=== PATIENT | male | born 1985 | race Caucasian/White ===

== ENCOUNTER 2020-04-08 01:33 | Emergency (ER) | payer OTHER, SELFPAY ==
--- NOTE | ~2020-04-08 | CT_ITS ---
EXAMINATION: CT BRAIN W/O DATE: 04/08/2020 02:32 INDICATION: Headache and dizziness TECHNIQUE: Computed tomography (CT) of the head was performed without intravenous contrast. The dose- length product was 605.33 mGy-cm. The mA was adjusted according to patient size. Iterative reconstruc tion technique was employed. COMPARISON: CT dated 04/10/2019 FINDINGS: Normal brain parenchymal volume for age. Normal whitehead-white differentiation. No acute intrac ranial hemorrhage, infarction, mass or mass effect. No ventriculomegaly or midline shift. Midline sagittal images demonstrate a normal corpus callosum, c raniovertebral junction and sella turcica. Basilar cisterns are patent. Paranasal sinuses and mastoids are pneumatized. No depressed skull fractures. IMPRESSION: 1. No acute intracranial abnormality. Reviewed, dictated and finalized at location A.
--- NOTE | ~2020-04-08 | XR_ITS ---
EXAMINATION: XR chest 2V 04/08/2020 02:33 INDICATION: Dizziness. PROCEDURE: 2 view chest COMPARISON: 04/10/2019 FINDINGS: The lungs are clear. The cardiomediastinal silhouette is within normal limits. There are no pleural effusions. There is no pneumothorax suspected. IMPRESSION: 1: NO ACUTE CARDIOPULMONARY DISEASE. Reviewed, dictated and finalized at location A.
[2020-04-08 01:35] VITALS: BP 120/78; PULSE 60; RESP 16; TEMP 37; O2SAT 98
--- NOTE | 2020-04-08 01:36 | ECG_ITS ---
Measurements Intervals [place] Rate: 55 P: 60 WY: 150 QRS: 73 QRSD: 91 T: 66 QT: 420 QTc: 405 Interpretive Statements SINUS BRADYCARDIA BORDERLINE ECG Electronically Signed On 04-08-2020 10:55:42 CDT by Brody Yen D.O.
[2020-04-08] MEDS: SODIUM CHLORIDE 0.9% IV 1,000 ML 999 ML IV CONT (01:45)
--- NOTE | 2020-04-08 01:47 | ED.ABDPAIN ---
HPI - Abdominal Pain General Chief Complaint: Chest Pain Stated Complaint: chest pain Time Seen by Provider: 04/08/20 01:33 Source: patient Mode of arrival: ambulatory Limitations: no limitations History of Present Illness HPI narrative: 35-year-old man who was previously well comes into the emergency department this evening complaining of headache, nausea, vomiting, dizziness and epigastric pain that started approximately 3 hours ago. Patient states that he felt tired so he fell asleep and when he woke up he had the symptoms. he also complains of photophobia and nasal congestion. He last ate at approximately 3:00 p.m.. He denies any sore throat, cough, shortness of breath, sick contacts, dysuria, hematuria, rash. patient denies history of migraines however he has been seen in this ER for migrainous symptoms on 12/29, 12/30, and 04/01. MD elicited complaint: abdominal pain Onset (ago): hour(s) (3-4) Pain Consistency: constant Location: epigastric Severity: moderate Quality: sharp Radiation: none Migration to: no migration Exacerbating factors: nothing Relieving factors: nothing Associated symptoms: nausea and vomiting Related Data Allergies Allergy/AdvReac Type Severity Reaction Status Date / Time No Known Allergies Allergy Verified 04/08/20 02:05 Review of Systems Constitutional: Constitutional: Denies chills, Reports fatigue, Denies fever(s) and Denies weakness Eyes: Eyes: Denies change in vision and Reports photophobia ENT: Denies dysphagia, Denies epistaxis, Reports nasal congestion and Denies sore throat Cardiovascular: Cardiovascular: Reports chest pain and Reports radiating jaw, neck or arm pain Respiratory: Respiratory: Denies cough, Denies dyspnea and Denies wheezing Gastrointestinal: Gastrointestinal: Reports as per HPI, Reports abdominal pain, Denies diarrhea, Reports nausea and Reports vomiting Genitourinary: Genitourinary: Denies dysuria and Denies urinary frequency Musculoskeletal: Musculoskeletal: Denies back pain, Denies arthralgias and Denies joint swelling Integumentary/Breasts: Skin/Breast: Denies pruritus, Denies erythema and Denies rash Neurologic: Denies vertigo, Denies dizziness, Denies syncope, Denies focal weakness and Denies numbness Hematologic/Lymphatic: Hematologic/Lymphatic: Denies easy bleeding and Denies easy bruising Allergic/Immunologic: Allergic/Immunologic: Denies lip swelling and Denies tongue swelling [facility] Social History Social History Smoking status: Current every day smoker Alcohol intake: current Substance use: never Living arrangements: with family Gender identity (if verbalized by the patient): Male Exam Const: General: healthy appearing and alert Orientation/consciousness: patient oriented x3 Limitations: no limitations Other: mild acute distress HENMT: Ears: external ears normal, TM's normal bilaterally and EAC's normal General nose exam: Normal nares present Face and sinus: normal facial exam Mouth: Yes moist mucous membranes Throat: posterior oropharynx normal Eyes: Conjunctivae: conjunctivae normal Pupils: Equal, round and reactive pupils present EOM: EOMs intact bilaterally Neck: Neck: normal visual inspection and no lymphadenopathy Resp: Effort & Inspection: normal respiratory effort and not labored Auscultation: clear to auscultation bilaterally, no rales, no rhonchi and no wheezes Cardio: Rate: regular rate Rhythm: regular rhythm Heart sounds: no murmurs GI: Inspection: non-distended GI Palp: Yes Soft to palpation Other: Mild diffuse tenderness of the epigastrium. without guarding, rebound. Skin: General skin exam: normal color, no jaundice and no pallor Rashes: no rashes Neuro: General: patient oriented x3, moves all extremities, no focal motor deficits and CN's II-XI intact bilaterally Speech: normal speech Gait exam (Neuro): Normal gait present Extrem: General: andressa
[2020-04-08 01:56] VITALS: BP 123/74; PULSE 60
[2020-04-08 01:57] VITALS: BP 122/78; PULSE 61
[2020-04-08 02:18] LABS: Basophils Absolute Auto 0.01 K/mm3 (0.00-0.10); Basophils Percent Auto 0.1 % (0.0-1.0); Eosinophils Percent Auto 1.2 % (1.0-6.0); Hemoglobin 14.3 g/dL (14.0-18.0); Immature Granulocyte Absolute 0.09 K/mm3 (0.00-0.00); Immature Granulocyte Percent A 1.1 % (0.0-0.0); Lymphocytes Absolute Auto 1.21 K/mm3 (1.10-4.50); Lymphocytes Percent Auto 15.1 % (18.0-42.0); Mean Corpuscular HGB Conc 33.3 g/dL (32.0-36.0); Mean Corpuscular Hemoglobin 30.9 pg (27.0-31.0); Mean Corpuscular Volume 92.9 fL (78.0-102.0); Mean Platelet Volume 10.2 fl (8.7-11.0); Monocytes Absolute Auto 0.54 K/mm3 (0.10-0.90); Monocytes Percent Auto 6.7 % (2.0-11.0); Neutrophils Absolute Auto 6.1 K/mm3 (1.7-7.2); Neutrophils Percent Auto 75.8 % (50.0-70.0); Platelet Count Result 199 K/mm3 (150-420); Red Blood Count 4.63 M/mm3 (4.70-6.10); Red Cell Distribution Width 13.1 % (11.6-14.4)
[2020-04-08 02:20] LABS: Bilirubin Urine Negative (Negative); Blood Urine Negative (Negative); Color Urine Yellow (Yellow); Glucose Urine UA Negative (Negative); Ketones Urine Negative (Negative); Leukocyte Esterase Ur Negative LEU/UL (Negative); Nitrate Urine Negative (Negative); Protein Urine Negative (Negative); Specific Grav Ur 1.015 (1.010-1.020); Urobilinogen Urine 0.2 mg/dL (0.2-1.0); pH Urine 8.5 (5.0-8.0)
[2020-04-08 02:21] LABS: Add Urine Microscopic? NO; Appearance Urine Clear (Clear)
[2020-04-08 02:28] LABS: INR 1.1; Partial Thromboplastin Time 31.4 SEC (22.3-31.6); Prothrombin Time 11.6 Seconds (9.64-11.0)
[2020-04-08 02:36] LABS: Alanine Aminotransferase 17 U/L (16-63); Albumin Level 4.2 g/dL (3.4-5.0); Alkaline Phosphatase 60 U/L (46-116); Anion Gap 9 mmol/L (8-16); Aspartate Amino Transferase 11 U/L (15-37); Bilirubin,Total 0.4 mg/dL (0.00-1.00); Blood Urea Nitrogen 7 mg/dL (7-18); CRP < 0.5 mg/dL (0.0-0.9); Calcium 8.7 mg/dL (8.5-10.1); Carbon Dioxide 26 mmol/L (21-32); Chloride 103 mmol/L (98-108); Creatine Kinase 111 U/L (39-308); Estimated CRCL calculation 84 ml/min; Estimated Glomerular Filt Rate > 60; Glucose 111 mg/dL (70-99); Lipase 50 U/L (73-393); Osmolality Calculated 285 mOsm/kg (285-295); Potassium 3.5 mmol/L (3.5-5.1); Sodium 138 mmol/L (136-145); Total Protein 7.1 g/dL (6.4-8.2)
[2020-04-08 02:39] LABS: Troponin I < 0.02 ng/mL (0.00-0.056)
[2020-04-08 02:42] LABS: Lactic Acid Reflex 0.6 mmol/L (0.4-2.0)
[2020-04-08] MEDS: KETOROLAC 30 MG/ML VIAL (*BKC) IV PUSH (02:51)
[2020-04-08] MEDS: ONDANSETRON INJ 4 MG/2 ML VIAL IV PUSH (02:52)
[2020-04-08 02:59] VITALS: BP 120/66; PULSE 62; RESP 16; TEMP 36.4; O2SAT 98
[2020-04-10 12:00] LABS: SARS-CoV-2 RNA PCR Negative
--- NOTE | 2020-04-21 22:42 | PC.NURSE ---
late entry 04/08/2020 IV complete 0145
== END 2020-04-08 03:01 | disposition home or self-care (01) ==
PROVIDERS: Emergency Provider Emergency Medicine; PCP Family Medicine
DX: B34.9 Viral infection, unspecified (principal); G44.89 Other headache syndrome
CPT/HCPCS: 36415; 70450; 71046; 80053; 81003; 82550; 83605; 83690; 84484; 85025; 85610; 85730; 86140; 87040; 87635; 93005; 96374; 96375; 99284; C9803; J1885; J2405; J7030; U0003

== ENCOUNTER 2020-05-03 16:42 | Outpatient (CLI) | payer OTHER, SELFPAY ==
--- NOTE | ~2020-05-03 | XR_ITS ---
EXAMINATION: XR_CERV2-3V_CR EXAM DATE: 05/03/2020 17:10 INDICATION: Generalized neck, upper back pain into shoulders. TECHNIQUE: Cervical spine frontal, lateral, lateral swimmers, and open-mouth odontoid projections. C omparison is made to prior examination from 04/29/2018. FINDINGS: There is no evidence of acute cervical fracture. The odontoid process is intact. Pre-dens space is normal. Prevertebral soft tissue is normal. There are no soft tissue abnormalities identi fied. The vertebral bodies are aligned. Vertebral body and disc heights are well-maintained. No more than mild cervical arthropathy. IMPRESSION: Mild cervical arthropathy. Reviewed, dictated and finalized at location A. IMPRESSION: Mild cervical arthropathy.
--- NOTE | ~2020-05-03 | XR_ITS ---
EXAMINATION: XR thoracic spine 3V EXAM DATE: 05/03/2020 17:10 INDICATION: Generalized neck/upper back pain into shoulders. No known injury. TECHNIQUE: Frontal and lateral projections of the thoracic spine as well as lateral swimmers projecti on of the upper thoracic spine for interpretation. Comparison is made to prior examination from 016. FINDINGS: Paraspinal soft tissue is unremarkable. There is minimal mid thoracic dextro scoliosis and lower thoracic levoscoliosis. There is mild disc disease from T8 through T12. Vertebral body heights are maintained. The vertebral bodies are aligned in the AP dimension. There are no bony erosions rose ntified. IMPRESSION: 1. Mild lower thoracic spondylosis. 2. Minimal scoliosis. Reviewed, dictated and finalized at location A.
== END 2020-05-03 16:43 | disposition home or self-care (01) ==
LOC: CHSIMG 16:44
PROVIDERS: PCP Family Medicine; Visit Provider Family Medicine
DX: M54.2 Cervicalgia (principal); M54.6 Pain in thoracic spine
CPT/HCPCS: 72040; 72072

== ENCOUNTER 2020-05-21 11:35 | Emergency (ER) | payer OTHER, SELFPAY ==
[2020-05-21 11:48] VITALS: BP 111/88; PULSE 79; RESP 14; TEMP 36.6; O2SAT 98
--- NOTE | 2020-05-21 12:03 | ED.URI ---
HPI - URI/Sore Throat General Chief Complaint: Upper Respiratory Infection Stated Complaint: 35YO male w/ 1 day h.o Sore throat associated w/ swollen lymph nodes, denies fever, chills. Related Data Home Medications Medication Instructions Recorded Confirmed No Home Medications 05/21/20 05/21/20 Allergies Allergy/AdvReac Type Severity Reaction Status Date / Time No Known Allergies Allergy Verified 04/08/20 02:05 Review of Systems Constitutional: Constitutional: Reports no additional constitutional complaints, Denies chills, Denies fatigue, Denies fever(s) and Denies weakness Eyes: Eyes: Reports no additional eye complaints ENT: Reports as per HPI and Reports sore throat Cardiovascular: Cardiovascular: Reports no additional cardiovascular complaints Respiratory: Respiratory: Reports no additional respiratory complaints Gastrointestinal: Gastrointestinal: Reports no additional gastrointestinal complaints Genitourinary: Genitourinary: Reports no additional male genitourinary complaints Musculoskeletal: Musculoskeletal: Reports no additional musculoskeletal complaints Integumentary/Breasts: Skin/Breast: Reports system reviewed and no additional complaints, except as docu Neurologic: Reports system reviewed and no additional complaints, except as documented Psychiatric: Psychiatric: Reports no additional psychiatric complaints Endocrine: Endocrine: Reports no additional endocrine complaints Hematologic/Lymphatic: Hematologic/Lymphatic: Reports no additional hematologic/lymphatic complaints Allergic/Immunologic: Allergic/Immunologic: Reports no additional allergic/immunologic complaints [facility] Social History Social History Smoking status: Current every day smoker Alcohol intake: current Substance use: never Gender identity (if verbalized by the patient): Male Exam Const: General: healthy appearing, no acute distress and alert Nutritional Appearance: thin Orientation/consciousness: patient oriented x3 Limitations: altered mental status HENMT: Head: normal to inspection General nose exam: Normal nares present Face and sinus: normal facial exam and sinuses nontender Mouth: Yes Normal oral and palatal mucosa present Other: POsterior pharyngeal erythema Eyes: Conjunctivae: conjunctivae normal Neck: Neck: lymphadenopathy Chest: Chest palpation & inspection: normal inspection of the chest Resp: Effort & Inspection: normal respiratory effort Auscultation: clear to auscultation bilaterally Cardio: Rate: regular rate Rhythm: regular rhythm GI: Inspection: non-distended GI Palp: Yes Soft to palpation, No Tenderness to palpation present (GI) and No Guarding due to palpation present (GI) Skin: General skin exam: normal color Neuro: General: patient oriented x3 and moves all extremities Extrem: General: normal to inspection Psych: Appearance: grossly normal Mental Status: mental status grossly normal Thought content: Yes Normal thought content present Course Course Emergency Course: Patient admits to feeling better after I discussed results of workup with her. I discussed Heart score and admission to R/O CT. She agrees with admission for observation. Vital Signs Vital signs: Vital Signs Temperature 97.9 F 05/21/20 11:48 Pulse Rate 79 05/21/20 11:48 Respiratory Rate 14 05/21/20 11:48 Blood Pressure 111/88 05/21/20 11:48 Pulse Oximetry 98 05/21/20 11:48 Temperature 97.9 F 05/21/20 11:48 Pulse Rate 79 05/21/20 11:48 Respiratory Rate 14 05/21/20 11:48 Blood Pressure 111/88 05/21/20 11:48 Pulse Oximetry 98 05/21/20 11:48 MDM - URI/Sore Throat Differential Diagnosis Differential diagnosis: Likely other (ACS, PE, GERD) Medical Records Attestation: I reviewed the patient's medical records. Lab Data Attestation: I reviewed the patient's lab results. ECG Data EKG #1: Attestation: I
[2020-05-21 12:56] LABS: Influenza Control Valid (Valid)
[2020-05-21 13:26] VITALS: RESP 14; O2SAT 100
== END 2020-05-21 13:27 | disposition home or self-care (01) ==
PROVIDERS: Emergency Provider Family Medicine; PCP Family Medicine
DX: J02.9 Acute pharyngitis, unspecified (principal)
CPT/HCPCS: 87081; 87804; 87880; 99282; 99283

== ENCOUNTER 2020-06-01 11:32 | Outpatient (CLI) | payer OTHER, SELFPAY ==
[2020-06-02 06:44] LABS: SARS-CoV-2 RNA PCR Negative
== END 2020-06-01 11:33 | disposition home or self-care (01) ==
LOC: CHSLAB 11:36
PROVIDERS: PCP Family Medicine; Visit Provider Family Medicine
DX: Z20.828 Contact with and (suspected) exposure to other viral communicable diseases (principal)
CPT/HCPCS: 87635; C9803; U0003

== ENCOUNTER 2020-09-11 08:52 | Outpatient (CLI) | payer OTHER, SELFPAY ==
[2020-09-11 09:03] LABS: Basophils Absolute Auto 0.02 K/mm3 (0.00-0.10); Basophils Percent Auto 0.3 % (0.0-1.0); Eosinophils Absolute Auto 0.26 K/mm3 (0.02-0.50); Eosinophils Percent Auto 3.4 % (1.0-6.0); Hematocrit 45.1 % (40.0-54.0); Hemoglobin 14.8 g/dL (14.0-18.0); Immature Granulocyte Absolute 0.01 K/mm3 (0.00-0.00); Immature Granulocyte Percent A 0.1 % (0.0-0.0); Lymphocytes Absolute Auto 2.89 K/mm3 (1.10-4.50); Lymphocytes Percent Auto 38.1 % (18.0-42.0); Mean Corpuscular HGB Conc 32.8 g/dL (32.0-36.0); Mean Corpuscular Hemoglobin 30.7 pg (27.0-31.0); Mean Corpuscular Volume 93.6 fL (78.0-102.0); Mean Platelet Volume 9.9 fl (8.7-11.0); Monocytes Absolute Auto 0.71 K/mm3 (0.10-0.90); Monocytes Percent Auto 9.4 % (2.0-11.0); Neutrophils Absolute Auto 3.7 K/mm3 (1.7-7.2); Neutrophils Percent Auto 48.7 % (50.0-70.0); Platelet Count Result 223 K/mm3 (150-420); Red Blood Count 4.82 M/mm3 (4.70-6.10); White Blood Count 7.6 K/mm3 (4.8-10.8)
[2020-09-11 09:04] LABS: Add Urine Microscopic? NO; Appearance Urine Clear (Clear); Bilirubin Urine Negative (Negative); Blood Urine Negative (Negative); Color Urine Yellow (Yellow); Glucose Urine UA Negative (Negative); Ketones Urine Negative (Negative); Leukocyte Esterase Ur Negative (Negative); Nitrate Urine Negative (Negative); Protein Urine Negative (Negative); Specific Grav Ur >= 1.030 (1.010-1.020); Urobilinogen Urine 0.2 mg/dL (0.2-1.0); pH Urine 6.5 (5.0-8.0)
[2020-09-11 10:02] LABS: Alanine Aminotransferase 27 U/L (16-63); Albumin Level 4.3 g/dL (3.4-5.0); Alkaline Phosphatase 61 U/L (46-116); Anion Gap 9 mmol/L (8-16); Aspartate Amino Transferase 15 U/L (15-37); Bilirubin,Total 0.3 mg/dL (0.00-1.00); Blood Urea Nitrogen 13 mg/dL (7-18); Carbon Dioxide 29 mmol/L (21-32); Chloride 103 mmol/L (98-108); Cholesterol 149 mg/dL (0-200); Estimated Glomerular Filt Rate > 60; Glucose 87 mg/dL (70-99); HDL Direct 41 mg/dL (40-60); LDL Cholesterol Calculated 100 mg/dL (<130); Osmolality Calculated 291 mOsm/kg (285-295); Potassium 4.2 mmol/L (3.5-5.1); Sodium 141 mmol/L (136-145); Triglycerides 40 mg/dL (0-150)
== END 2020-09-11 08:53 | disposition home or self-care (01) ==
PROVIDERS: PCP Family Medicine; Visit Provider Family Medicine
DX: I78.1 Nevus, non-neoplastic (principal); Z13.220 Encounter for screening for lipoid disorders
CPT/HCPCS: 36415; 80053; 80061; 81003; 85025

== ENCOUNTER 2020-11-15 03:53 | Emergency (ER) | payer OTHER, SELFPAY ==
[2020-11-15 04:18] VITALS: BP 118/77; PULSE 57; RESP 20; TEMP 36.8; O2SAT 99
[2020-11-15] MEDS: METOCLOPRAMIDE HCL INJ 10 MG/2 ML VIAL IM (04:32)
[2020-11-15] MEDS: KETOROLAC (*BKC) 60 MG/2 ML VIAL IM (04:32)
[2020-11-15] MEDS: DIVALPROEX SODIUM ER 250 MG TAB.24H 750 MG PO (04:33)
[2020-11-15 04:52] VITALS: BP 120/71; PULSE 65; RESP 20; O2SAT 99
--- NOTE | 2020-11-15 04:53 | ED.HA ---
HPI - Headache General Chief Complaint: Headache Stated Complaint: Migraine Time Seen by Provider: 11/15/20 04:25 Source: patient and family Mode of arrival: ambulatory Limitations: no limitations History of Present Illness HPI Narrative: Patient comes in with migraine. He says severe sharp stabbing pain started about 5 hours ago and is located behind his left eye. This is associated with nausea. He states he has headaches like this about once a week, but this is more severe than his typical. He has increased pain with light exposure, less with dark, and increased pain with movement, less with rest. MD elicited complaint: headache and migraine Pertinent past history: migraines Onset (ago): hour(s) Onset description: gradually Location: left Severity: severe Quality & Timing: throbbing and similar to previous headaches Exacerbating factors: exertion and light Relieving factors: rest and dark room Context: occurred at rest Associated symptoms: nausea Related Data Allergies Allergy/AdvReac Type Severity Reaction Status Date / Time No Known Allergies Allergy Verified 06/01/20 13:29 Review of Systems Constitutional: Constitutional: Reports no additional constitutional complaints Eyes: Eyes: Reports no additional eye complaints ENT: Reports system reviewed and no additional complaints, except as documented Cardiovascular: Cardiovascular: Reports no additional cardiovascular complaints Respiratory: Respiratory: Reports no additional respiratory complaints Gastrointestinal: Gastrointestinal: Reports no additional gastrointestinal complaints Genitourinary: Genitourinary: Reports no additional male genitourinary complaints Musculoskeletal: Musculoskeletal: Reports no additional musculoskeletal complaints Integumentary/Breasts: Skin/Breast: Reports system reviewed and no additional complaints, except as docu Neurologic: Reports system reviewed and no additional complaints, except as documented Psychiatric: Psychiatric: Reports no additional psychiatric complaints Endocrine: Endocrine: Reports no additional endocrine complaints Hematologic/Lymphatic: Hematologic/Lymphatic: Reports no additional hematologic/lymphatic complaints Allergic/Immunologic: Allergic/Immunologic: Reports no additional allergic/immunologic complaints [facility] Past Medical History Medical History (Updated 11/15/20 @ 05:46 by Jacky Aceves MD) Acute viral pharyngitis Ganglion Ganglion and cyst of synovium, tendon and bursa Social History Social History Smoking status: Current every day smoker Alcohol intake: current Substance use: never Gender identity (if verbalized by the patient): Male Exam Const: General: no acute distress Orientation/consciousness: patient oriented x3 HENMT: Head: normal to inspection General nose exam: Normal external nose present Mouth: Yes Abnormal oral and palatal mucosa present Eyes: Conjunctivae: conjunctivae normal Neck: Neck: normal visual inspection Chest: Chest palpation & inspection: normal inspection of the chest Resp: Effort & Inspection: normal respiratory effort Auscultation: clear to auscultation bilaterally Cardio: Rate: regular rate Rhythm: regular rhythm GI: GI Palp: Yes Soft to palpation (nontender) Skin: General skin exam: normal color Neuro: General: patient oriented x3 and moves all extremities Extrem: General: normal to inspection Psych: Appearance: grossly normal Mental Status: mental status grossly normal Thought content: Yes Normal thought content present Course Course Emergency Course: he was evaluated and given [id number] depakote 750mg, and reglan 10mg IM after a few minutes he was feeling better Vital Signs Vital signs: Vital Signs Temperature 36.8 C 11/15/20 04:18 Pulse Rate 57 L 11/15/20 04:18 Respiratory Rate 20 11/15/20 04:18 Blood Pressure 118/77 11/15/20 04:18 Pulse Oximetr
== END 2020-11-15 04:58 | disposition home or self-care (01) ==
PROVIDERS: Emergency Provider Emergency Medicine; PCP Family Medicine
DX: G43.919 Migraine, unspecified, intractable, without status migrainosus (principal)
CPT/HCPCS: 96372; 99283; 99284; A9270; J1885; J2765

== ENCOUNTER 2020-12-16 02:26 | Emergency (ER) | payer OTHER, SELFPAY ==
[2020-12-16 02:30] VITALS: BP 130/86; PULSE 80; RESP 16; TEMP 36.3; O2SAT 95
--- NOTE | 2020-12-16 02:57 | ED.HA ---
HPI - Headache General Chief Complaint: Headache Stated Complaint: PAIN Time Seen by Provider: 12/16/20 02:57 Source: patient Mode of arrival: ambulatory Limitations: no limitations History of Present Illness HPI Narrative: 35-year-old man with history of headaches comes in today complaining of a headache that started earlier today. He was working on a trailer axle with his friend when the headache started. He has had some nausea and photophobia. The pain is frontal and occipital and is similar to headaches that he has had in the past. He states he has not seen his primary care doctor and does not have a specific treatment for his headaches but took ibuprofen today. The ibuprofen did not help. MD elicited complaint: headache Onset (ago): hour(s) Onset description: suddenly Location: frontal and occipital Severity: moderate Quality & Timing: throbbing Exacerbating factors: none Relieving factors: nothing Associated symptoms: nausea and photophobia Treatments prior to arrival: ibuprofen Related Data Allergies Allergy/AdvReac Type Severity Reaction Status Date / Time No Known Allergies Allergy Verified 06/01/20 13:29 Review of Systems Review of Systems: All systems reviewed & are unremarkable except as noted in HPI and below Constitutional: Constitutional: Denies chills and Denies fever(s) Eyes: Eyes: Denies change in vision and Reports photophobia ENT: Denies nasal congestion and Denies sore throat Cardiovascular: Cardiovascular: Denies chest pain and Denies radiating jaw, neck or arm pain Respiratory: Respiratory: Denies cough and Denies dyspnea Gastrointestinal: Gastrointestinal: Denies abdominal pain, Reports nausea and Denies vomiting Musculoskeletal: Musculoskeletal: Denies arthralgias and Denies joint swelling Integumentary/Breasts: Skin/Breast: Denies pruritus, Denies erythema and Denies rash Neurologic: Denies vertigo, Denies dizziness, Denies syncope, Reports headache(s) and Denies focal weakness PMFSH Past Medical History Medical History Acute viral pharyngitis Ganglion Ganglion and cyst of synovium, tendon and bursa Social History Social History Smoking status: Current every day smoker Alcohol intake: current Substance use: never Gender identity (if verbalized by the patient): Male Exam Const: General: healthy appearing and alert Orientation/consciousness: patient oriented x3 Limitations: no limitations Other: Mild acute distress. HENMT: Head: normal to inspection Ears: external ears normal, TM's normal bilaterally and EAC's normal General nose exam: Normal nares present Face and sinus: normal facial exam Mouth: Yes moist mucous membranes abnormal Throat: posterior oropharynx normal Eyes: Conjunctivae: conjunctivae normal Pupils: Equal, round and reactive pupils present EOM: EOMs intact bilaterally Resp: Effort & Inspection: normal respiratory effort and not labored Auscultation: clear to auscultation bilaterally, no rales, no rhonchi and no wheezes Cardio: Rate: regular rate Rhythm: regular rhythm Heart sounds: no murmurs Skin: General skin exam: normal color, no jaundice and no pallor Rashes: no rashes Neuro: General: patient oriented x3, moves all extremities, no focal motor deficits and CN's II-XI intact bilaterally Speech: normal speech Gait exam (Neuro): Normal gait present Other: Normal Romberg, finger-nose and tandem walk testing. Extrem: General: normal to inspection and no clubbing, cyanosis or edema Psych: Appearance: grossly normal and well kempt Mental Status: mental status grossly normal Affect: normal affect Attitude: cooperative Thought content: Yes Normal thought content present Course Course Emergency Course: Patient came to the desk and states that he wants to leave. After reviewing his chart and discussed findings and treat
--- NOTE | 2020-12-16 04:33 | PC.NURSE ---
0230: 2 ambulance arrived with seizures and another with cardiac event. Patient explained wait. 0310: MD with patient, patient agitated over wait. 0340: Patient at desk asking to leave, feeling better 0400: D/C
[2020-12-16 04:35] VITALS: BP 130/70; PULSE 90; RESP 18; TEMP 36.3; O2SAT 96
== END 2020-12-16 04:00 | disposition home or self-care (01) ==
PROVIDERS: Emergency Provider Emergency Medicine; PCP Family Medicine
DX: R51.9 Headache, unspecified (principal)
CPT/HCPCS: 99283

== ENCOUNTER 2021-03-07 13:20 | Outpatient (CLI) | payer OTHER, SELFPAY ==
[2021-03-07 15:14] LABS: SARS-CoV-2 RNA PCR Positive (Negative)
== END 2021-03-07 13:21 | disposition home or self-care (01) ==
PROVIDERS: PCP Family Medicine; Visit Provider Family Medicine
DX: U07.1 COVID-19 (principal); J00 Acute nasopharyngitis [common cold]
CPT/HCPCS: C9803; U0003; U0005

== ENCOUNTER 2021-03-31 11:50 | Emergency (ER) | payer OTHER, SELFPAY ==
--- NOTE | ~2021-03-31 | XR_ITS ---
EXAMINATION: XR hand LT 2V INDICATION: Left hand pain TECHNIQUE: Two views of the left hand are obtained. COMPARISON: None available FINDINGS: There is no fracture, dislocation, or subluxation. The bones and joint spaces are normal. N o radiopaque foreign body is identified. There appears to be a palmar soft tissue defect overlying th e metacarpals. IMPRESSION: 1. No acute osseous abnormality. Reviewed, dictated and finalized at location A.
--- NOTE | 2021-03-31 12:02 | ED.WOUNDLAC ---
HPI - Wound/Laceration General Stated Complaint: L hand lac, drill bit went into hand Source: patient Mode of arrival: ambulatory Limitations: no limitations History of Present Illness HPI narrative: this is a 36-year-old male that presents with injury to the palm of his left hand after he was working and a drill bit entered his left hand causing a punctate puncture wound currently has slight numbness to his left middle finger with puncture wound with no gaping area of in the wound, patient has good range of motion and movement in his left hand has a strong brisk radial pulse, is up-to-date with his tetanus shot. Onset (ago): hour(s) Extremity Location: Left: hand ( puncture wound palmar surface of his left hand) Place: home Patient tetanus UTD: Yes Context: accidental Associated symptoms: none Related Data Allergies Allergy/AdvReac Type Severity Reaction Status Date / Time No Known Allergies Allergy Verified 06/01/20 13:29 Review of Systems Review of Systems: All systems reviewed & are unremarkable except as noted in HPI and below PMFSH Past Medical History Medical History Acute viral pharyngitis Ganglion Ganglion and cyst of synovium, tendon and bursa Social History Social History Smoking status: Current every day smoker Alcohol intake: current Substance use: never Gender identity (if verbalized by the patient): Male Exam Const: General: no acute distress and alert Orientation/consciousness: patient oriented x3 HENMT: Head: normal to inspection Eyes: Conjunctivae: conjunctivae normal Pupils: Equal, round and reactive pupils present EOM: EOMs intact bilaterally Neck: Neck: normal visual inspection Chest: Chest palpation & inspection: normal inspection of the chest Cardio: Rate: regular rate Rhythm: regular rhythm Skin: Other: Puncture wound to the palmar surface of his left hand currently no bleeding no swelling Neuro: General: patient oriented x3, moves all extremities and no meningeal signs Psych: Mental Status: mental status grossly normal Affect: normal affect Attitude: cooperative Course Course Emergency Course: x-ray findings reviewed with patient, patient is up-to-date with his tetanus the area was cleaned, x-ray reviewed co wound is alone for dental abscess, advised to not take the amoxicillin will send Augmentin to his pharmacy. Critical Care Time Critical Care Time Critical Care Time: No Discharge Plan Discharge Clinical Impression: Puncture wound Patient Disposition: Home, Self-Care Condition: Stable Instructions: Antibiotic Form, Puncture Wound (ED) Additional Instructions: discontinue amoxicillin, will send Augmentin to your pharmacy take that as directed. Prescriptions: New amoxicillin-pot clavulanate [Augmentin] 875-125 mg tablet 1 tablet PO Q12H Qty: 20 RF: 0 No Action rizatriptan [Maxalt] 10 mg tablet 10 mg PO ONCE Qty: 18 RF: 0 ondansetron 4 mg tablet,disintegrating 4 mg PO Q6H PRN (Reason: nausea and vomiting) Qty: 10 RF: 0 Follow-up/Referrals: Lane Rosas MD [Primary Care Provider] - Time of Disposition: 12:22
[2021-03-31 12:08] VITALS: BP 121/82; PULSE 84; RESP 20; TEMP 36.9; O2SAT 98
[2021-03-31 12:29] VITALS: PULSE 82; RESP 20; O2SAT 100
== END 2021-03-31 12:34 | disposition home or self-care (01) ==
PROVIDERS: Emergency Provider Emergency Medicine; PCP Family Medicine
DX: S61.432A Puncture wound without foreign body of left hand, initial encounter (principal); W45.8XXA Other foreign body or object entering through skin, initial encounter
CPT/HCPCS: 73120; 99283

== ENCOUNTER 2021-08-01 07:35 | Outpatient (CLI) | payer OTHER, SELFPAY ==
[2021-08-01 08:11] LABS: Basophils Absolute Auto 0.02 K/mm3 (0.00-0.10); Basophils Percent Auto 0.3 % (0.0-1.0); Eosinophils Absolute Auto 0.17 K/mm3 (0.02-0.50); Eosinophils Percent Auto 2.6 % (1.0-6.0); Hemoglobin 15.6 g/dL (14.0-18.0); Immature Granulocyte Absolute 0.02 K/mm3 (0.00-0.00); Immature Granulocyte Percent A 0.3 % (0.0-0.0); Lymphocytes Absolute Auto 2.34 K/mm3 (1.10-4.50); Lymphocytes Percent Auto 35.3 % (18.0-42.0); Mean Corpuscular HGB Conc 32.5 g/dL (32.0-36.0); Mean Corpuscular Hemoglobin 30.1 pg (27.0-31.0); Mean Corpuscular Volume 92.7 fL (78.0-102.0); Mean Platelet Volume 9.7 fl (8.7-11.0); Monocytes Absolute Auto 0.61 K/mm3 (0.10-0.90); Monocytes Percent Auto 9.2 % (2.0-11.0); Neutrophils Absolute Auto 3.5 K/mm3 (1.7-7.2); Neutrophils Percent Auto 52.3 % (50.0-70.0); Platelet Count Result 236 K/mm3 (150-420); Red Blood Count 5.18 M/mm3 (4.70-6.10); Red Cell Distribution Width 12.7 % (11.6-14.4); White Blood Count 6.6 K/mm3 (4.8-10.8)
[2021-08-01 08:31] LABS: SARS-CoV-2 Ag Negative (Negative)
[2021-08-01 10:05] LABS: Alanine Aminotransferase 26 U/L (16-63); Albumin Level 4.3 g/dL (3.4-5.0); Alkaline Phosphatase 70 U/L (46-116); Anion Gap 10 mmol/L (8-16); Aspartate Amino Transferase 16 U/L (15-37); Bilirubin,Total 0.5 mg/dL (0.00-1.00); Blood Urea Nitrogen 11 mg/dL (7-18); Calcium 9.4 mg/dL (8.5-10.1); Carbon Dioxide 28 mmol/L (21-32); Chloride 102 mmol/L (98-108); Estimated Glomerular Filt Rate > 60; Glucose 102 mg/dL (70-99); Osmolality Calculated 289 mOsm/kg (285-295); Potassium 4.2 mmol/L (3.5-5.1); Sodium 140 mmol/L (136-145); Total Protein 7.1 g/dL (6.4-8.2)
[2021-08-02 21:12] LABS: SARS-CoV-2 RNA PCR Negative
== END 2021-08-01 07:36 | disposition home or self-care (01) ==
LOC: CHSLAB 07:38
PROVIDERS: PCP Family Medicine; Visit Provider Nurse Practitioner Family
DX: R59.9 Enlarged lymph nodes, unspecified (principal); Z20.822 Contact with and (suspected) exposure to COVID-19
CPT/HCPCS: 80053; 85025; 87081; 87426; 87880; C9803; U0003; U0005

== ENCOUNTER 2021-08-22 17:20 | Emergency (ER) | payer OTHER, SELFPAY ==
--- NOTE | ~2021-08-22 | CT_ITS ---
EXAMINATION: CT thoracic spine wo con DATE: 08/22/2021 18:30 INDICATION: Thoracic back pain. Low back pain. TECHNIQUE: Computed tomography (CT) of the thoracic spine was performed without intravenous contrast. Automated exposure control and iterative reconstruction technique were employed. The dose-length pro duct was 1115.56 mGy-cm. COMPARISON: None FINDINGS: There is 6 degrees dextrocurvature of upper thoracic spine. There is mild chronic anterior wedging of T8-L1 vertebral bodies. There is mildly decreased disc height at T8-T9 and T9-T10. There i s multilevel mild facet joint osteoarthritis. No neural foraminal stenosis or central canal stenosis. IMPRESSION: 1. Mild thoracic spondylosis. Reviewed, dictated and finalized at location A. D AGRONOMIST
--- NOTE | ~2021-08-22 | CT_ITS ---
EXAMINATION: CT lumbar spine wo con DATE: 08/22/2021 18:29 INDICATION: Low back pain. TECHNIQUE: Computed tomography (CT) of the lumbar spine was performed without intravenous contrast. A utomated exposure control and iterative reconstruction technique were employed. The dose-length produ ct was 1115.56 mGy-cm. COMPARISON: None FINDINGS: There is 3 degrees dextrocurvature of lumbar spine. There is mild chronic anterior wedging of T11-L1 vertebral bodies associated with Schmorl's nodes. Intervertebral disc heights are normal in lumbar spine. The following disc levels are specifically discussed: L1-L2: The disc does not extend beyond the endplate margin. There is mild bilateral facet joint osteo arthritis. There is no neural foraminal stenosis. There is no central canal stenosis. L2-L3: The disc does not extend beyond the endplate margin. There is mild bilateral facet joint osteo arthritis. There is no neural foraminal stenosis. There is no central canal stenosis. L3-L4: The disc does not extend beyond the endplate margin. There is mild bilateral facet joint osteo arthritis. There is no neural foraminal stenosis. There is no central canal stenosis. L4-L5: The disc is bulging. There is mild lateral facet joint osteoarthritis. There is mild bilateral neural foraminal stenosis. There is mild central canal stenosis. L5-S1: The disc does not extend beyond the endplate margin. There is mild bilateral facet joint osteo arthritis. There is no neural foraminal stenosis. There is no central canal stenosis. IMPRESSION: 1. Mild lumbar spondylosis. Reviewed, dictated and finalized at location A. IESEL ENGINEERING MANAGER IMPRESSION: 1. Mild lumbar spondylosis.
[2021-08-22 17:34] VITALS: BP 115/80; PULSE 63; RESP 14; TEMP 36.6; O2SAT 100
[2021-08-22 18:10] LABS: Add Urine Microscopic? NO; Appearance Urine Clear (Clear); Bilirubin Urine Negative (Negative); Blood Urine Negative (Negative); Color Urine Yellow (Yellow); Glucose Urine UA Negative (Negative); Ketones Urine Negative (Negative); Leukocyte Esterase Ur Negative (Negative); Nitrate Urine Negative (Negative); Protein Urine Negative (Negative); Specific Grav Ur 1.025 (1.010-1.020); Urobilinogen Urine 0.2 mg/dL (0.2-1.0)
--- NOTE | 2021-08-22 18:14 | ED.BACK ---
HPI - Back Pain/Injury General Chief Complaint: Back Pain/Injury Stated Complaint: back pain Time Seen by Provider: 08/22/21 17:22 Source: patient and RN notes reviewed Mode of arrival: ambulatory Limitations: no limitations History of Present Illness MD elicited complaint: back pain Pertinent past history: prior back pain Onset (ago): day(s) (1) Timing: constant Severity: mild Pain scale (0-10): 5 Similar Symptoms Previously: Yes Quality: dull and aching Location: lumbar spine and thoracic spine Exacerbating factors: movement Relieving factors: immobilization Context: turning/twisting Associated symptoms: denies other symptoms Treatments prior to arrival: NSAIDS Work related injury: No Related Data Allergies Allergy/AdvReac Type Severity Reaction Status Date / Time No Known Allergies Allergy Verified 08/22/21 17:45 Review of Systems Review of Systems: All systems reviewed & are unremarkable except as noted in HPI and below PMFSH Past Medical History Medical History Acute viral pharyngitis Back ache Ganglion Ganglion and cyst of synovium, tendon and bursa Social History Social History Smoking status: Current every day smoker Alcohol intake: current Substance use: never Gender identity (if verbalized by the patient): Male Exam Const: General: no acute distress and alert Nutritional Appearance: thin Orientation/consciousness: patient oriented x3 Limitations: no limitations HENMT: Head: normal to inspection Ears: TM's normal bilaterally and EAC's normal General nose exam: Normal external nose present and Normal nares present Face and sinus: normal facial exam and sinuses nontender Mouth: Yes lip normal and Yes moist mucous membranes Eyes: Conjunctivae: conjunctivae normal Pupils: Equal, round and reactive pupils present EOM: EOMs intact bilaterally Neck: Neck: normal visual inspection and no lymphadenopathy Chest: Chest palpation & inspection: normal inspection of the chest Resp: Effort & Inspection: normal respiratory effort Auscultation: clear to auscultation bilaterally Cardio: Rate: regular rate Rhythm: regular rhythm GI: GI Palp: Yes Soft to palpation and No Tenderness to palpation present (GI) Auscultation: normal bowel sounds : General: Yes bladder normal to palpation and Yes no CVA tenderness Male General Exam: Yes normal external exam Testes: Testes normal Back/Spine/Pelvis: Back: no CVA tenderness Other: minimal paraspinal back tenderness with no acute redness, swelling or deformity Skin: General skin exam: normal color Rashes: no rashes Neuro: General: patient oriented x3, moves all extremities, no meningeal signs and no focal motor deficits Extrem: General: normal to inspection and no pedal edema Psych: Appearance: grossly normal and disheveled Mental Status: mental status grossly normal Affect: Sad affect present Attitude: cooperative Thought content: Yes Normal thought content present Course Course Emergency Course: pt was stable with less pain in the ED. Reevaluation(s) Reevaluation #1: VSS. Pt ambulated comfortably in the ED, Date: 08/22/21 Time: 18:17 Vital Signs Vital signs: Vital Signs Temperature 36.6 C 08/22/21 17:34 Pulse Rate 63 08/22/21 17:34 Respiratory Rate 14 08/22/21 17:34 Blood Pressure 115/80 08/22/21 17:34 Pulse Oximetry 100 08/22/21 17:34 Temperature 36.6 C 08/22/21 17:34 Pulse Rate 63 08/22/21 17:34 Respiratory Rate 14 08/22/21 17:34 Blood Pressure 115/80 08/22/21 17:34 Pulse Oximetry 100 08/22/21 17:34 MDM - Back Pain/Injury Differential Diagnosis Differential diagnosis: Likely lumbar radiculopathy, sciatica, strain of lumbar region, thoracic back pain and discitis Medical Records Attestation: I reviewed the patient's medical records. Lab Data Attestation: I reviewed the patien
[2021-08-22] MEDS: KETOROLAC (*BKC) 60 MG/2 ML VIAL IM (18:33)
[2021-08-22 19:10] VITALS: BP 112/73; PULSE 84; RESP 14; O2SAT 100
== END 2021-08-22 19:15 | disposition home or self-care (01) ==
PROVIDERS: Emergency Provider Emergency Medicine; PCP Family Medicine
DX: M54.9 Dorsalgia, unspecified (principal); S39.012A Strain of muscle, fascia and tendon of lower back, initial encounter
CPT/HCPCS: 72128; 72131; 81003; 96372; 99284; J1885

== ENCOUNTER 2022-01-02 10:42 | Emergency (ER) | payer OTHER, SELFPAY ==
[2022-01-02] VITALS (8 sets, daily range): BP systolic 109–140; BP diastolic 67–89; PULSE 63–78; RESP 16–20; TEMP 36.4–36.6; O2SAT 98–100
--- NOTE | ~2022-01-02 | XR_ITS ---
EXAMINATION: XR chest 2V DATE: 01/02/2022 11:15 INDICATION: Central chest pain and tightness TECHNIQUE: PA and lateral views of the chest were obtained. COMPARISON: Chest radiograph dated 04/08/2020 FINDINGS: The lungs remain clear with no focal airspace opacities, pulmonary edema, pleural effusion or pneumot horax. The cardiomediastinal silhouette is normal. Mild thoracic kyphosis with chronic minimal to mil d anterior wedging of several mid to lower thoracic vertebral bodies. Left first and second ribs. IMPRESSION: 1. No acute cardiopulmonary disease. Reviewed, dictated and finalized at location B.
--- NOTE | 2022-01-02 10:54 | ED.CHESTPAIN ---
HPI - Chest Pain General Chief Complaint: Chest Pain Stated Complaint: anbulance Time Seen by Provider: 01/02/22 10:50 Source: patient, EMS and RN notes reviewed Mode of arrival: EMS Limitations: no limitations History of Present Illness MD complaint: chest pain Onset (ago): hour(s) (1) Timing of current episode: constant Prior episodes: Yes Onset: during exertion Pain location: substernal Pain radiation: none Severity: moderate Quality: tightness and aching Relieving factors: nothing Exacerbating factors: stress Associated symptoms: dyspnea (Chest hurts when he breathes in and out) Treatment prior to arrival: none Related Data Home Medications Medication Instructions Recorded Confirmed No Home Medications 01/02/22 01/02/22 Allergies Allergy/AdvReac Type Severity Reaction Status Date / Time No Known Allergies Allergy Verified 01/02/22 10:53 Review of Systems Constitutional: Constitutional: Denies chills and Denies fever(s) Cardiovascular: Cardiovascular: Denies diaphoresis Gastrointestinal: Gastrointestinal: Denies nausea and Denies vomiting PMFSH Past Medical History Medical History Acute viral pharyngitis Back ache Ganglion Ganglion and cyst of synovium, tendon and bursa Social History Social History Smoking status: Current every day smoker Alcohol intake: current Substance use: never Gender identity (if verbalized by the patient): Male Exam Const: General: healthy appearing and no acute distress Nutritional Appearance: well nourished and thin Orientation/consciousness: patient oriented x3 Limitations: no limitations HENMT: Head: normal to inspection Ears: external ears normal General nose exam: Normal external nose present Face and sinus: normal facial exam Mouth: Yes moist mucous membranes Eyes: Conjunctivae: conjunctivae normal Pupils: Equal, round and reactive pupils present EOM: EOMs intact bilaterally Neck: Neck: normal visual inspection Resp: Effort & Inspection: normal respiratory effort Auscultation: clear to auscultation bilaterally Cardio: Rate: regular rate Rhythm: regular rhythm GI: GI Palp: Yes Soft to palpation and No Tenderness to palpation present (GI) Auscultation: normal bowel sounds Back/Spine/Pelvis: Cervical Spine: cervical ROM normal Thoracic/Lumbar Spine: thoraco-lumbar ROM normal Skin: General skin exam: normal color Rashes: no rashes Wounds: no wounds Neuro: General: patient oriented x3, moves all extremities, no focal motor deficits and CN's II-XI intact bilaterally Speech: normal speech Gait exam (Neuro): Normal gait present Extrem: General: normal to inspection and no clubbing, cyanosis or edema Psych: Mental Status: mental status grossly normal Affect: normal affect Attitude: cooperative Course Vital Signs Vital signs: Vital Signs Temperature 36.4 C 01/02/22 10:45 Pulse Rate 67 01/02/22 10:45 Respiratory Rate 20 01/02/22 10:45 Blood Pressure 127/89 01/02/22 10:45 Pulse Oximetry 100 01/02/22 10:45 Oxygen Delivery Room Air 01/02/22 10:45 Temperature 36.6 C 01/02/22 14:04 Pulse Rate 64 01/02/22 14:04 Respiratory Rate 16 01/02/22 14:04 Blood Pressure 109/73 01/02/22 14:04 Pulse Oximetry 99 01/02/22 14:04 Oxygen Delivery Room Air 01/02/22 14:04 MDM - Chest Pain MDM Narrative Medical decision making narrative: heart score equals 1 Differential Diagnosis Differential diagnosis: Likely pneumothorax, atypical chest pain, st elevation myocardial infarction and costochondritis Lab Data Attestation: I reviewed the patient's lab results. Result diagrams: 01/02/22 11:15 01/02/22 11:15 Labs: Lab Results 01/02/22 01/02/22 01/02/22 Range/Units 11:15 11:15 11:15 WBC 10.0 (4.8-10.8) K/mm3 RBC 4.78 (4.70-6.10) M/mm3 Hgb 14.8 (14.0-
--- NOTE | 2022-01-02 10:57 | ECG_ITS ---
Measurements Intervals [place] Rate: 69 P: 50 LA: 136 QRS: 83 QRSD: 90 T: 68 QT: 393 QTc: 421 Interpretive Statements SINUS RHYTHM NORMAL ECG COMPARED TO ECG 04/08/2020 01:50:07 HEART RATE HAS INCREASED Electronically Signed On 01-02-2022 15:06:33 CDT by Dewayne Mazariegos M.D.
[2022-01-02] MEDS: ASPIRIN 81 MG CHEWABLE TABLET 324 MG PO (11:12)
[2022-01-02 11:26] LABS: Basophils Absolute Auto 0.03 K/mm3 (0.00-0.10); Basophils Percent Auto 0.3 % (0.0-1.0); Eosinophils Absolute Auto 0.15 K/mm3 (0.02-0.50); Eosinophils Percent Auto 1.5 % (1.0-6.0); Hematocrit 43.8 % (40.0-54.0); Hemoglobin 14.8 g/dL (14.0-18.0); Immature Granulocyte Absolute 0.03 K/mm3 (0.00-0.00); Immature Granulocyte Percent A 0.3 % (0.0-0.0); Lymphocytes Absolute Auto 2.44 K/mm3 (1.10-4.50); Lymphocytes Percent Auto 24.3 % (18.0-42.0); Mean Corpuscular HGB Conc 33.8 g/dL (32.0-36.0); Mean Corpuscular Volume 91.6 fL (78.0-102.0); Mean Platelet Volume 10.1 fl (8.7-11.0); Monocytes Absolute Auto 0.77 K/mm3 (0.10-0.90); Monocytes Percent Auto 7.7 % (2.0-11.0); Neutrophils Absolute Auto 6.6 K/mm3 (1.7-7.2); Neutrophils Percent Auto 65.9 % (50.0-70.0); Platelet Count Result 220 K/mm3 (150-420); Red Blood Count 4.78 M/mm3 (4.70-6.10)
[2022-01-02 11:40] LABS: D Dimer 0.19 mg/L (0.19-0.50); INR 1.1; Prothrombin Time 11.8 Seconds (9.50-12.10)
[2022-01-02 11:44] LABS: Alanine Aminotransferase 20 U/L (16-63); Albumin Level 4.2 g/dL (3.4-5.0); Alkaline Phosphatase 70 U/L (46-116); Anion Gap 7 mmol/L (8-16); Aspartate Amino Transferase 12 U/L (15-37); Bilirubin,Total 0.4 mg/dL (0.00-1.00); Blood Urea Nitrogen 8 mg/dL (7-18); Calcium 8.6 mg/dL (8.5-10.1); Carbon Dioxide 27 mmol/L (21-32); Chloride 103 mmol/L (98-108); Estimated CRCL calculation 92 ml/min; Estimated Glomerular Filt Rate > 60; Glucose 92 mg/dL (70-99); Osmolality Calculated 282 mOsm/kg (285-295); Potassium 3.5 mmol/L (3.5-5.1); Sodium 137 mmol/L (136-145); Total Protein 7.2 g/dL (6.4-8.2); Troponin I 5.6 ng/L (0.00-60.4)
[2022-01-02 13:49] LABS: Troponin I 6.8 ng/L (0.00-60.4)
== END 2022-01-02 14:05 | disposition home or self-care (01) ==
PROVIDERS: Emergency Provider Emergency Medicine; PCP Family Medicine
DX: R07.89 Other chest pain (principal)
CPT/HCPCS: 36415; 71046; 80053; 84484; 85025; 85380; 85610; 93005; 99284; A9270

== ENCOUNTER 2022-02-22 19:14 | Emergency (ER) | payer OTHER, SELFPAY ==
[2022-02-22 19:17] VITALS: BP 132/84; PULSE 80; RESP 16; TEMP 36.6; O2SAT 96
--- NOTE | 2022-02-22 19:37 | ED.SKABFB ---
HPI - Skin/Abscess/Foreign Bdy General Chief complaint: Skin/Abscess/Foreign Body Stated complaint: rash/lower back pulled muscle Time Seen by Provider: 02/22/22 19:37 Source: patient and RN notes reviewed Mode of arrival: ambulatory Limitations: no limitations History of Present Illness HPI narrative: Patient has been moving some fence piles at his parent's house. While doing this he has strained his back which he has had problems with in the past. He also came in contact with either poison osbaldo or poison oak and he has contact dermatitis on his upper and lower extremities bilaterally and abdomen back groin area. complaint: rash Onset (ago): day(s) (1) Location: generalized Severity: moderate Quality: burning, constant and pruritic Relieving factors: none Exacerbating factors: none Associated symptoms: denies other symptoms Treatments prior to arrival: none Related Data Allergies Allergy/AdvReac Type Severity Reaction Status Date / Time No Known Allergies Allergy Verified 02/22/22 19:25 Review of Systems Review of Systems: All systems reviewed & are unremarkable except as noted in HPI and below Musculoskeletal: Musculoskeletal: Reports back pain PMFSH Past Medical History Medical History Acute viral pharyngitis Back ache Ganglion Ganglion and cyst of synovium, tendon and bursa Social History Social History Smoking status: Current every day smoker Alcohol intake: current Substance use: never Gender identity (if verbalized by the patient): Male Exam Const: General: healthy appearing, no acute distress and alert Nutritional Appearance: well nourished and thin Orientation/consciousness: patient oriented x3 Limitations: no limitations HENMT: Head: normal to inspection Ears: external ears normal Eyes: Conjunctivae: conjunctivae normal Pupils: Equal, round and reactive pupils present EOM: EOMs intact bilaterally Neck: Neck: normal visual inspection Resp: Effort & Inspection: normal respiratory effort Auscultation: clear to auscultation bilaterally Cardio: Rate: regular rate Rhythm: regular rhythm GI: GI Palp: Yes Soft to palpation and No Tenderness to palpation present (GI) Auscultation: normal bowel sounds Back/Spine/Pelvis: Cervical Spine: cervical ROM normal Thoracic/Lumbar Spine: thoraco-lumbar ROM normal, straight leg raise negative bilaterally, pain with thoraco-lumbar ROM and paraspinal muscle tenderness bilaterally Skin: General skin exam: normal color Rashes: rashes noted macules diffuse arrangement linear, borders sharp, distribution ( Lower and upper extremities bilaterally, abdomen back groin) and morphology linear; nontender Neuro: General: patient oriented x3, moves all extremities, no focal motor deficits and CN's II-XI intact bilaterally Speech: normal speech Gait exam (Neuro): Normal gait present Deep tendon reflexes (DTR's): Right patellar reflex intensity grade: 2+, Left patellar reflex intensity grade: 2+, Right ankle reflex intensity grade: 2+ and Left ankle reflex intensity grade: 2+ Extrem: General: normal to inspection and no clubbing, cyanosis or edema Psych: Mental Status: mental status grossly normal Affect: normal affect Attitude: cooperative Course Vital Signs Vital signs: Vital Signs Temperature 36.6 C 02/22/22 19:17 Pulse Rate 80 02/22/22 19:17 Respiratory Rate 16 02/22/22 19:17 Blood Pressure 132/84 02/22/22 19:17 Pulse Oximetry 96 02/22/22 19:17 Oxygen Delivery Room Air 02/22/22 19:17 Temperature 36.6 C 02/22/22 19:17 Pulse Rate 72 02/22/22 20:06 Respiratory Rate 16 02/22/22 20:06 Blood Pressure 128/72 02/22/22 20:06 Pulse Oximetry 98 02/22/22 20:06 Oxygen Delivery Room Air 02/22/22 20:06 Discharge Plan Discharge Clinical Impression: Poison osbaldo dermatitis Low back strain Qualifiers:
[2022-02-22] MEDS: KETOROLAC (*BKC) 60 MG/2 ML VIAL IM (19:49)
[2022-02-22 20:06] VITALS: BP 128/72; PULSE 72; RESP 16; O2SAT 98
== END 2022-02-22 20:06 | disposition home or self-care (01) ==
PROVIDERS: Emergency Provider Emergency Medicine; PCP Family Medicine
DX: L23.7 Allergic contact dermatitis due to plants, except food (principal); S39.012A Strain of muscle, fascia and tendon of lower back, initial encounter
CPT/HCPCS: 96372; 99283; J1885

== ENCOUNTER 2022-02-27 11:59 | Outpatient (CLI) | payer OTHER, SELFPAY ==
--- NOTE | ~2022-02-27 | XR_ITS ---
EXAMINATION: XR lumbar spine 2-3V DATE: 02/27/2022 12:36 INDICATION: Low back pain TECHNIQUE: Anteroposterior and lateral views of the lumbar spine, and cone-down lateral view of the l umbosacral junction were obtained. COMPARISON: CT, 08/22/2021 FINDINGS: Bone alignment is normal. There is no fracture. The vertebral body heights and intervertebr al disc spaces are normal. There is mild facet osteoarthritis of the lower lumbar spine. IMPRESSION: 1. Mild lumbar spondylosis without acute findings or significant interval change. Reviewed, dictated and finalized at location A. IMPRESSION: 1. Mild lumbar spondylosis without acute findings or significant interval mckeon alvino
== END 2022-02-27 12:00 | disposition home or self-care (01) ==
LOC: CHSLAB 12:03
PROVIDERS: PCP Family Medicine; Visit Provider Family Medicine
DX: M54.50 Low back pain, unspecified (principal); N50.812 Left testicular pain
CPT/HCPCS: 72100; 87086; 87491; 87591; 87661

== ENCOUNTER 2022-03-12 13:32 | Outpatient (RCR) | payer OTHER, SELFPAY ==
--- NOTE | 2022-03-12 14:05 | PTOPEVAL1 ---
Evaluation Information Assessment Status Evaluation Diagnosis back pain, lumbar, bilateral LE's Onset 03/01/22 Subjective Information patient reports he has been having pain in the lower back and down the bilateral LE's. he reports he has numbness, burning, and tingling in the legs. he reports he is unable to sleep due to pain . he reports no MRI as of this date. he report she has had an xray of the lower back. he reports he has pain all day. he reports tramadol is not helping the pain. he reports he has incraesed pain with bending, twisting, turning/leaning, and lifting objects. patient reports no specific injury. he reports he has been moving a lot of fence panels and personal/home objects for his parents who are moving. Reported Pain Level Pain Score 8: Self Report Assessment PT Clinical Summary mr. moreno presents to skilled PT services for evaluation and treatment of lower back and pain. he presents this date with signs and symptoms of a flexion based/discoid type injury of the lumbar spine. he presents with symptoms down his L more than R LE. he would do well to attend skilled PT to improve his objective/functional deficits, decrease pain/symptoms, and return to his prior level functional activity performance. Plan of Care PT Services Indicated Yes Treatment Frequency and 2x weekly for 6 visits Duration These treatments will address the objective and functional deficits as defined above. The patient will be advanced safely and appropriately in order for the patient to progress towards his/her prior level of function. Additional exercises will be introduced and as well as a comprehensive home exercise program upon discharge, if needed, ?to ensure carryover of functional gains achieved in the clinic. This treatment plan has been reviewed and agreement upon by the patient.
== END 2022-03-19 14:58 | disposition home or self-care (01) ==
LOC: CHSPT 13:32
PROVIDERS: PCP Family Medicine; Visit Provider Family Medicine
DX: M54.9 Dorsalgia, unspecified (principal); M79.605 Pain in left leg
CPT/HCPCS: 97014; 97110; 97140; 97161; G0283

== ENCOUNTER 2022-07-01 00:41 | Emergency (ER) | payer OTHER, SELFPAY ==
--- NOTE | ~2022-07-01 | XR_ITS ---
EXAMINATION: XR chest 2V DATE: 07/01/2022 01:20 INDICATION: Chest pain. Cough. TECHNIQUE: Frontal and lateral views of the chest were obtained. COMPARISON: Chest 2 views 01/02/2022, thoracic spine CT 08/22/2021 FINDINGS: There is mild scarring at the lung apices. No pleural effusion or pneumothorax. The heart s ize is normal. There is mild chronic anterior wedging of multiple vertebral bodies. IMPRESSION: 1. Stable mild scarring at the lung apices. Reviewed, dictated and finalized at location A. ITY SYSTEM REPAIRER
--- NOTE | 2022-07-01 00:43 | ECG_ITS ---
Measurements Intervals [place] Rate: 68 P: 34 ND: 136 QRS: 57 QRSD: 93 T: 54 QT: 380 QTc: 405 Interpretive Statements SINUS RHYTHM LOW QRS VOLTAGE IN PRECORDIAL LEADS [QRS DEFLECTION < 1.0 mV IN CHEST LEADS] COMPARED TO ECG 01/02/2022 11:02:50 NO SIGNIFICANT CHANGES Electronically Signed On 07-01-2022 10:32:17 MACHINE TOOL DESIGNER by Jimbo Ruiz M.D.
[2022-07-01 00:45] VITALS: BP 130/89; PULSE 73; RESP 18; TEMP 36.4; O2SAT 98
--- NOTE | 2022-07-01 00:54 | ED.CHESTPAIN ---
HPI - Chest Pain General Chief Complaint: Chest Pain Stated Complaint: Chest Pain Source: patient Mode of arrival: ambulatory Limitations: no limitations History of Present Illness HPI narrative: 37-YEAR-OLD WHITE MALE COMPLAINS OF CHEST PAIN, LOWER CHEST EPIGASTRIUM PAIN THAT STARTED WHILE HE WAS IN BED TONIGHT WATCHING TV AFTER DRINKING SOME WATER. CHEST PAIN STARTED AROUND 10:00 A.M. HE THOUGHT IT WAS SOME HEARTBURNS WE TOOK 2 TUMS. HOURS LATER HE WAS STILL HAVING PAIN SO HE CALLED HIS SISTER TO BRING HIM TO THE EMERGENCY DEPARTMENT. HE TRIED USING A HEATING PAD HAD SOME NAUSEA HE DESCRIBED THE PAIN IS PRESSURE IS WORSE WHEN HE MOVED ON HIS LEFT SIDE OR TOOK A DEEP BREATH IN AND OUT OR IF HE LAID ON HIS RIGHT SIDE. HE THOUGHT MAYBE THE HEATING PAD HE HAS HIS PAIN LITTLE BIT. SAID HE HAD EATEN A HANDFUL OF WEAN HER DOGS AND HAD 2 [place] [employer] EARLY IN THE EVENING. HE HAS NOT HAD ANY INJURY. YESTERDAY WAS SEEN IN [facility] ED FOR SOME SWOLLEN TOOTH THAT HAD SWOLLEN THE LEFT SIDE OF HIS PAIN PLACED ON CLINDAMYCIN 300 MG Q 6 HOURS AND GIVEN NORCO 10/ 325 WITH AN TAKE ANY FOR ABOUT 24 HOURS. HE HAD SOME NAUSEA WITHOUT VOMITING DENIED DIAPHORESIS. DENIES ANY BLEEDING OR BRUISING, COUGH, PROBLEMS VOIDING OR STOOLING, FEVER, RASH OR ITCHING FOR DIARRHEA. RISK FACTORS: PATIENT SMOKES SINCE AGE 15 IS A FAMILY HISTORY OF HEART DISEASE HIS FATHER HAD OR IN HIS 30S AND HAD AORTIC VALVE REPLACED. PATIENT DENIES ANY PERSONAL HISTORY OF HEART DISEASE DIABETES HYPERTENSION DRUG USE OR ALCOHOL USE. NO HISTORY OF DRUG USE I.E. COCAINE. HISTORY OF HYPERLIPIDEMIA SOCIAL HISTORY HE IS CURRENTLY BETWEEN JOBS HE HAS BEEN MOVING WAS WORKING IN THE [employer] Related Data Home Medications Medication Instructions Recorded Confirmed clindamycin HCl 300 mg capsule 300 mg PO DIRECTED 07/01/22 07/01/22 hydrocodone 10 mg-acetaminophen 1 tablet PO DIRECTED 07/01/22 07/01/22 325 mg tablet Allergies Allergy/AdvReac Type Severity Reaction Status Date / Time No Known Allergies Allergy Verified 07/01/22 00:57 Review of Systems Review of Systems: All systems reviewed & are unremarkable except as noted in HPI and below Constitutional: Constitutional: Reports no additional constitutional complaints Eyes: Eyes: Reports no additional eye complaints ENT: Reports system reviewed and no additional complaints, except as documented Cardiovascular: Cardiovascular: Reports as per HPI, Reports no additional cardiovascular complaints, Reports chest pain, Denies rapid heart rate, Denies radiating jaw, neck or arm pain and Denies slow heart rate Respiratory: Respiratory: Reports as per HPI, Reports no additional respiratory complaints, Denies chest congestion, Denies cough and Denies dyspnea Gastrointestinal: Gastrointestinal: Reports as per HPI, Reports no additional gastrointestinal complaints, Reports abdominal pain, Denies constipation, Reports heartburn, Denies diarrhea, Reports nausea and Denies vomiting Genitourinary: Genitourinary: Reports no additional male genitourinary complaints and Reports dysuria Musculoskeletal: Musculoskeletal: Reports no additional musculoskeletal complaints, Denies back pain and Denies myalgias Integumentary/Breasts: Skin/Breast: Denies rash Neurologic: Denies confusion, Denies dizziness, Denies focal weakness, Denies numbness and Denies weakness Psychiatric: Psychiatric: Reports no additional psychiatric complaints Allergic/Immunologic: Allergic/Immunologic: Denies wheezing PMFSH Past Medical History Medical History Acute viral pharyngitis Back ache Ganglion Ganglion and cyst of synovium, tendon and bursa Social History Social History Smoking status: Current every day smoker Alcohol intake: current Substance use: never Gender identity (if verbalized by the patient): Male Exam
[2022-07-01 01:33] LABS: Basophils Absolute Auto 0.03 K/mm3 (0.00-0.10); Basophils Percent Auto 0.4 % (0.0-1.0); Eosinophils Absolute Auto 0.14 K/mm3 (0.02-0.50); Hematocrit 45.3 % (40.0-54.0); Immature Granulocyte Absolute 0.02 K/mm3 (0.00-0.00); Immature Granulocyte Percent A 0.3 % (0.0-0.0); Lymphocytes Absolute Auto 2.27 K/mm3 (1.10-4.50); Mean Corpuscular HGB Conc 33.1 g/dL (32.0-36.0); Mean Corpuscular Hemoglobin 30.3 pg (27.0-31.0); Mean Corpuscular Volume 91.5 fL (78.0-102.0); Mean Platelet Volume 10.5 fl (8.7-11.0); Monocytes Absolute Auto 0.65 K/mm3 (0.10-0.90); Monocytes Percent Auto 9.2 % (2.0-11.0); Neutrophils Percent Auto 56.1 % (50.0-70.0); Platelet Count Result 208 K/mm3 (150-420); Red Blood Count 4.95 M/mm3 (4.70-6.10); Red Cell Distribution Width 13.2 % (11.6-14.4); White Blood Count 7.1 K/mm3 (4.8-10.8)
[2022-07-01 01:45] VITALS: BP 123/85; PULSE 66; RESP 20; O2SAT 98
[2022-07-01 01:51] LABS: Alanine Aminotransferase 28 U/L (16-63); Albumin Level 4.1 g/dL (3.4-5.0); Alkaline Phosphatase 76 U/L (46-116); Anion Gap 7 mmol/L (8-16); Aspartate Amino Transferase 16 U/L (15-37); Bilirubin,Total 0.3 mg/dL (0.00-1.00); Blood Urea Nitrogen 8 mg/dL (7-18); Calcium 8.9 mg/dL (8.5-10.1); Carbon Dioxide 29 mmol/L (21-32); Chloride 103 mmol/L (98-108); D Dimer 0.28 mg/L (0.19-0.50); Estimated CRCL calculation 101 ml/min; Estimated Glomerular Filt Rate > 60; Glucose 86 mg/dL (70-99); Lipase 14 U/L (16-77); Osmolality Calculated 285 mOsm/kg (285-295); Partial Thromboplastin Time 30.3 SEC (23.90-30.70); Potassium 3.9 mmol/L (3.5-5.1); Sodium 139 mmol/L (136-145); Total Protein 7.4 g/dL (6.4-8.2); Troponin I 4.4 ng/L (0.00-60.4)
[2022-07-01 02:48] VITALS: BP 123/80; PULSE 63; RESP 18; O2SAT 99
[2022-07-01 03:25] VITALS: BP 118/80; PULSE 58; RESP 15; O2SAT 97
[2022-07-01 04:00] LABS: Troponin I 4.4 ng/L (0.00-60.4)
[2022-07-01 04:20] VITALS: BP 113/85; PULSE 61; RESP 15; TEMP 36.4; O2SAT 98
== END 2022-07-01 04:28 | disposition home or self-care (01) ==
PROVIDERS: Emergency Provider Emergency Medicine; PCP Family Medicine
DX: R07.9 Chest pain, unspecified (principal); F17.200 Nicotine dependence, unspecified, uncomplicated
CPT/HCPCS: 36415; 71046; 80053; 83690; 84484; 85025; 85380; 85610; 85730; 93005; 99284

== ENCOUNTER 2022-08-25 02:33 | Emergency (ER) | payer OTHER, SELFPAY ==
[2022-08-25 02:35] VITALS: BP 132/87; PULSE 70; RESP 20; TEMP 36.6; O2SAT 99
--- NOTE | 2022-08-25 03:02 | ED.WOUNDLAC ---
HPI - Wound/Laceration General Chief Complaint: Wound/Laceration Stated Complaint: wound on abdomen Source: patient Mode of arrival: ambulatory Limitations: no limitations History of Present Illness HPI narrative: this is a 37-year-old male that presents with small abscess located right above his belly button with an area of surrounding erythema there was some drainage with no fever chills started approximately 3 days ago. Onset (ago): day(s) Location: abdomen Place: home Related Data Home Medications Medication Instructions Recorded Confirmed hydrocodone 10 mg-acetaminophen 1 tablet PO DIRECTED 07/01/22 08/25/22 325 mg tablet amoxicillin 500 mg capsule 500 mg PO TID 08/25/22 08/25/22 Allergies Allergy/AdvReac Type Severity Reaction Status Date / Time No Known Allergies Allergy Verified 07/01/22 00:57 Review of Systems Review of Systems: All systems reviewed & are unremarkable except as noted in HPI and below PMFSH Past Medical History Medical History Acute viral pharyngitis Back ache Ganglion Ganglion and cyst of synovium, tendon and bursa Social History Social History Smoking status: Current every day smoker Alcohol intake: current Substance use: never Living arrangements: with family Gender identity (if verbalized by the patient): Male Exam Const: General: healthy appearing Nutritional Appearance: well nourished Orientation/consciousness: patient oriented x3 Limitations: no limitations HENMT: Head: normal to inspection Face and sinus: normal facial exam Mouth: Yes Normal oral and palatal mucosa present Eyes: Conjunctivae: conjunctivae normal Pupils: Equal, round and reactive pupils present EOM: EOMs intact bilaterally Direct Ophthalmoscopy: no photophobia Neck: Neck: normal visual inspection, no lymphadenopathy and no meningeal signs Chest: Chest palpation & inspection: normal inspection of the chest Resp: Effort & Inspection: normal respiratory effort Cardio: Rate: regular rate Rhythm: regular rhythm GI: GI Palp: Yes Soft to palpation Auscultation: normal bowel sounds Urinary Catheter: Urinary Catheter: patent and draining Back/Spine/Pelvis: Back: no CVA tenderness Skin: Wounds: wounds noted Neuro: General: patient oriented x3 Cranial nerves: Yes Nystagmus not present Speech: normal speech Extrem: General: normal to inspection Psych: Mental Status: mental status grossly normal Affect: normal affect Course Course Emergency Course: Patient was given 1g IM ceftriaxone and triple antibiotic ointment applied. Vital Signs Vital signs: Vital Signs Temperature 36.6 C 08/25/22 02:35 Pulse Rate 70 08/25/22 02:35 Respiratory Rate 20 08/25/22 02:35 Blood Pressure 132/87 08/25/22 02:35 Pulse Oximetry 99 08/25/22 02:35 Oxygen Delivery Room Air 08/25/22 02:35 Temperature 36.6 C 08/25/22 02:35 Pulse Rate 70 08/25/22 02:35 Respiratory Rate 20 08/25/22 02:35 Blood Pressure 132/87 08/25/22 02:35 Pulse Oximetry 99 08/25/22 02:35 Oxygen Delivery Room Air 08/25/22 02:35 Critical Care Time Critical Care Time Critical Care Time: No Discharge Plan Discharge Clinical Impression: Abscess Patient Disposition: Home, Self-Care Condition: Stable Instructions: Antibiotic Form, Abscess (ED) Additional Instructions: take medicine as prescribed and follow-up with primary care physician if symptoms persist or worsen. Prescriptions: New amoxicillin-pot clavulanate [Augmentin] 500-125 mg tablet 1 tablet PO TID Qty: 30 0RF mupirocin 2 % ointment 1 applic topical TID 7 Days Qty: 15 0RF No Action hydrocodone-acetaminophen 10-325 mg tablet 1 tablet PO DIRECTED amoxicillin 500 mg capsule 500 mg PO TID Follow-up/Referrals: Lane Rosas MD [Primary Care Provider
[2022-08-25] MEDS: cefTRIAXone 1 GM, LIDOCAINE HCL 1% LOCAL INJ 2.1 ML IM (03:04)
[2022-08-25] MEDS: NEOMYCIN/POLYMYXIN/BACITRACIN OINTMENT PACKET 1 PACKET TOPICAL (03:07)
[2022-08-25 03:16] VITALS: BP 128/79; PULSE 75; RESP 18; TEMP 36.7; O2SAT 100
== END 2022-08-25 03:19 | disposition home or self-care (01) ==
PROVIDERS: Emergency Provider Emergency Medicine; PCP Family Medicine
DX: L02.211 Cutaneous abscess of abdominal wall (principal); F17.200 Nicotine dependence, unspecified, uncomplicated; Z79.891 Long term (current) use of opiate analgesic
CPT/HCPCS: 96372; 99283; J0696

== ENCOUNTER 2022-10-09 19:49 | Emergency (ER) | payer OTHER, SELFPAY ==
[2022-10-09 19:58] VITALS: BP 142/90; PULSE 78; RESP 20; TEMP 36.3; O2SAT 95
--- NOTE | 2022-10-09 20:03 | ED.DENTAL ---
HPI - Dental/Oral General Chief complaint: Dental/Oral Stated complaint: oral care and swollen glands Source: patient Mode of arrival: ambulatory History of Present Illness HPI Narrative: 37-year-old male with extensive dental caries status post recent dental extraction in the left upper jaw presents to the ER with -- left upper jaw pain. The patient has left upper gum/gingival swelling with 3 teeth with missing crowns. Patient also complains of tender left upper cervical lymph nodes. No fever. The patient is scheduled to see an oral surgeon. MD Complaint: tooth pain Location: Tooth # (9 to 16) Onset (ago): day(s) Duration: constant Relieving factors: nothing Exacerbating factors: cold and heat Context: history of dental caries and poor dental care Treatment prior to arrival: none ( Recent extraction of teeth in the left upper jaw.) Related Data Allergies Allergy/AdvReac Type Severity Reaction Status Date / Time No Known Allergies Allergy Verified 07/01/22 00:57 Review of Systems Review of Systems: All systems reviewed & are unremarkable except as noted in HPI and below PMFSH Past Medical History Medical History Acute viral pharyngitis Back ache Ganglion Ganglion and cyst of synovium, tendon and bursa Social History Social History Smoking status: Current every day smoker Alcohol intake: current Substance use: never Living arrangements: with family Gender identity (if verbalized by the patient): Male Exam Const: General: no acute distress Orientation/consciousness: patient oriented x3 Limitations: no limitations HENMT: Head: normal to inspection Ears: external ears normal Face and sinus: normal facial exam Mouth: Yes Normal oral and palatal mucosa present ( extensive gum swelling with gingivitis.) Teeth and gingiva: dentition normal ( Extensive dental caries with multiple missing teeth. Missing 9 to 16) Throat: posterior oropharynx normal Eyes: Conjunctivae: conjunctivae normal Pupils: Equal, round and reactive pupils present Direct Ophthalmoscopy: no photophobia Neck: Neck: normal visual inspection, no meningeal signs and lymphadenopathy Other: tender left upper cervical lymphadenopathy Chest: Chest palpation & inspection: normal inspection of the chest Resp: Auscultation: clear to auscultation bilaterally and diminished lung sounds Cardio: Rate: regular rate Rhythm: regular rhythm GI: Auscultation: normal bowel sounds Other: no tenderness/rigidity /rebound. : General: Yes no CVA tenderness Back/Spine/Pelvis: Back: no CVA tenderness Skin: General skin exam: normal color Rashes: no rashes Neuro: General: patient oriented x3, moves all extremities, no meningeal signs, no focal motor deficits and CN's II-XI intact bilaterally Cranial nerves: Yes Nystagmus not present Extrem: General: normal to inspection, no clubbing, cyanosis or edema and no pedal edema Psych: Mental Status: mental status grossly normal Affect: normal affect Course Course Emergency Course: Dental pain dental caries gingivitis-- will give the patient oral clindamycin. The patient is due to follow-up with an oral surgeon for removal of the few remaining roots of the left upper jaw Vital Signs Vital signs: Vital Signs Temperature 36.3 C L 10/09/22 19:58 Pulse Rate 78 10/09/22 19:58 Respiratory Rate 20 10/09/22 19:58 Blood Pressure 142/90 H 10/09/22 19:58 Pulse Oximetry 95 10/09/22 19:58 Oxygen Delivery Room Air 10/09/22 19:58 Temperature 36.3 C L 10/09/22 19:58 Pulse Rate 78 10/09/22 19:58 Respiratory Rate 20 10/09/22 19:58 Blood Pressure 142/90 H 10/09/22 19:58 Pulse Oximetry 95 10/09/22 19:58 Oxygen Delivery Room Air 10/09/22 19:58 MDM - Dental/Oral MDM Narrative Medical decision making narrative: dental caries dental katherine
[2022-10-09] MEDS: CLINDAMYCIN HCL 150 MG CAP 300 MG PO (20:20)
[2022-10-09] MEDS: HYDROcodone/acetaminophen (*CRX) 5-325 MG TABLET 1 TAB PO (20:20)
[2022-10-09 20:42] VITALS: BP 132/89; PULSE 90; RESP 20; TEMP 37; O2SAT 95
== END 2022-10-09 20:52 | disposition home or self-care (01) ==
PROVIDERS: Emergency Provider Internal Medicine Critical Care Medicine; PCP Family Medicine
DX: K02.9 Dental caries, unspecified (principal); K05.10 Chronic gingivitis, plaque induced; K08.89 Other specified disorders of teeth and supporting structures; F17.200 Nicotine dependence, unspecified, uncomplicated
CPT/HCPCS: 99283; A9270

== ENCOUNTER 2022-10-13 22:26 | Emergency (ER) | payer OTHER, SELFPAY ==
--- NOTE | ~2022-10-13 | XR_ITS ---
EXAMINATION: XR chest 1V portable DATE: 10/13/2022 22:45 INDICATION: Midline chest pain TECHNIQUE: AP view of the chest was obtained. COMPARISON: Chest radiograph dated 07/01/2022 FINDINGS: The lungs are clear with no focal airspace opacities, pulmonary edema, pleural effusion or pneumothor ax. The cardiomediastinal silhouette is normal. Visualized bones and soft tissues are unremarkable. IMPRESSION: 1. No acute cardiopulmonary disease. Reviewed, dictated and finalized at location A.
[2022-10-13 22:27] VITALS: PULSE 61
--- NOTE | 2022-10-13 22:28 | ED.CHESTPAIN ---
HPI - Chest Pain General Chief Complaint: Chest Pain Stated Complaint: Chest Pain Time Seen by Provider: 10/13/22 22:26 Source: patient Mode of arrival: ambulatory Limitations: no limitations History of Present Illness HPI narrative: 37 year old male presents to the Emergency Department complaining of substernal chest pain. States onset approximately an hour ago while driving. States he has shortness of breath, broke out in sweat and feels nauseous. Had a similar episode while driving home from [place] several years ago, but was not evaluated. No prior cardiac history, but states has Family History of CVD. Smoker. Denies drug use. MD complaint: chest pain Onset (ago): hour(s) (1) Timing of current episode: constant Prior episodes: Yes (once) Onset: during rest (while driving) Pain location: substernal Pain radiation: none Severity: moderate Quality: tightness Relieving factors: nothing Exacerbating factors: nothing Associated symptoms: nausea, diaphoresis and dyspnea Treatment prior to arrival: none Risk Factors Coronary artery disease risk factors: smoking history and family history of CAD before age 50 Thoracic aortic dissection risk factors: none Related Data Home Medications Medication Instructions Recorded Confirmed tramadol 50 mg PO Q4-6H PRN Pain 10/13/22 10/13/22 Allergies Allergy/AdvReac Type Severity Reaction Status Date / Time No Known Allergies Allergy Verified 10/13/22 22:44 Review of Systems Review of Systems: All systems reviewed & are unremarkable except as noted in HPI and below Constitutional: Constitutional: Reports as per HPI, Reports no additional constitutional complaints, Denies chills and Denies fever(s) Eyes: Eyes: Reports as per HPI and Reports no additional eye complaints ENT: Reports system reviewed and no additional complaints, except as documented and Reports as per HPI Cardiovascular: Cardiovascular: Reports as per HPI, Reports no additional cardiovascular complaints and Reports chest pain Respiratory: Respiratory: Reports as per HPI, Reports no additional respiratory complaints and Reports dyspnea Gastrointestinal: Gastrointestinal: Reports as per HPI, Reports no additional gastrointestinal complaints, Denies diarrhea, Reports nausea and Denies vomiting Genitourinary: Genitourinary: Reports no additional male genitourinary complaints Musculoskeletal: Musculoskeletal: Reports no additional musculoskeletal complaints Integumentary/Breasts: Skin/Breast: Reports system reviewed and no additional complaints, except as docu Neurologic: Reports system reviewed and no additional complaints, except as documented Psychiatric: Psychiatric: Reports no additional psychiatric complaints Endocrine: Endocrine: Reports no additional endocrine complaints Hematologic/Lymphatic: Hematologic/Lymphatic: Reports no additional hematologic/lymphatic complaints Allergic/Immunologic: Allergic/Immunologic: Reports no additional allergic/immunologic complaints [facility] Past Medical History Medical History Acute viral pharyngitis Back ache Ganglion Ganglion and cyst of synovium, tendon and bursa Social History Social History Smoking status: Current every day smoker Alcohol intake: current Substance use: never Living arrangements: with family Gender identity (if verbalized by the patient): Male Exam Const: General: healthy appearing (mild distress) and alert; No diaphoretic Nutritional Appearance: thin Orientation/consciousness: patient oriented x3 Limitations: no limitations HENMT: Head: normal to inspection Ears: external ears normal Face/Nose/Sinus: Normal external nose present Face and sinus: normal facial exam Eyes: Conjunctivae: conjunctivae normal Pupils: Equal, round and reactive pupils present EOM: EOMs intact bilaterally Direct Ophthalmoscopy: no photo
--- NOTE | 2022-10-13 22:29 | ECG_ITS ---
Measurements Intervals [place] Rate: 61 P: 54 MT: 143 QRS: 80 QRSD: 85 T: 72 QT: 408 QTc: 412 Interpretive Statements SINUS RHYTHM WITH SINUS ARRHYTHMIA NORMAL EKG INTERPRETATION BASED ON A DEFAULT AGE OF 40 YEARS COMPARED TO ECG 07/01/2022 00:48:57 SINUS ARRHYTHMIA NOW PRESENT Electronically Signed On 10-14-2022 12:31:16 CDT by Jimbo Ruiz M.D.
[2022-10-13 22:30] VITALS: BP 141/84; PULSE 64; RESP 20; TEMP 36.7; O2SAT 100
[2022-10-13] MEDS: NITROGLYCERIN SL 0.4 MG TABLET SUBLINGUAL ×2 (22:34→22:49)
[2022-10-13] MEDS: ASPIRIN 81 MG CHEWABLE TABLET 324 MG PO (22:35)
[2022-10-13 22:52] VITALS: BP 112/69; PULSE 70; RESP 18; O2SAT 92
[2022-10-13 23:00] VITALS: PULSE 57; O2SAT 97
[2022-10-13 23:12] LABS: Basophils Absolute Auto 0.01 K/mm3 (0.00-0.10); Basophils Percent Auto 0.2 % (0.0-1.0); Eosinophils Absolute Auto 0.08 K/mm3 (0.02-0.50); Eosinophils Percent Auto 1.5 % (1.0-6.0); Hematocrit 39.6 % (40.0-54.0); Hemoglobin 13.3 g/dL (14.0-18.0); Immature Granulocyte Absolute 0.01 K/mm3 (0.00-0.00); Immature Granulocyte Percent A 0.2 % (0.0-0.0); Lymphocytes Absolute Auto 1.59 K/mm3 (1.10-4.50); Lymphocytes Percent Auto 29.7 % (18.0-42.0); Mean Corpuscular HGB Conc 33.6 g/dL (32.0-36.0); Mean Corpuscular Hemoglobin 30.9 pg (27.0-31.0); Mean Corpuscular Volume 91.9 fL (78.0-102.0); Mean Platelet Volume 10.7 fl (8.7-11.0); Monocytes Absolute Auto 0.51 K/mm3 (0.10-0.90); Monocytes Percent Auto 9.5 % (2.0-11.0); Neutrophils Absolute Auto 3.2 K/mm3 (1.7-7.2); Neutrophils Percent Auto 58.9 % (50.0-70.0); Platelet Count Result 191 K/mm3 (150-420); Red Blood Count 4.31 M/mm3 (4.70-6.10); Red Cell Distribution Width 13.2 % (11.6-14.4); White Blood Count 5.4 K/mm3 (4.8-10.8)
[2022-10-13 23:15] LABS: Base Excess ABG 3.1 mmol/L (0-2); D Dimer 0.19 mg/L (0.19-0.50); HCO3 ABG 26.2 mmol/L (23-29); Oxygen Content ABG 18.9 %vol (16.0-22.0); Oxygen Saturation ABG 97.8 % (95-97); Oxyhemoglobin 94.2 % (94-100); PCO2 ABG 35.2 mmHg (35-45); PO2 ABG 107.2 mmHg (80-90); Total Hemoglobin 14.2 g/dL (12.0-18.0); pH ABG 7.49 (7.35-7.45)
[2022-10-13 23:17] LABS: Device ROOM AIR; Modified Allen's Test Pass; Site Drawn RIGHT RADIAL
[2022-10-13 23:24] LABS: Alanine Aminotransferase 30 U/L (16-63); Alkaline Phosphatase 78 U/L (46-116); Anion Gap 10 mmol/L (8-16); Aspartate Amino Transferase 21 U/L (15-37); Bilirubin,Total 0.3 mg/dL (0.00-1.00); Blood Urea Nitrogen 16 mg/dL (7-18); Calcium 8.7 mg/dL (8.5-10.1); Carbon Dioxide 28 mmol/L (21-32); Chloride 103 mmol/L (98-108); Estimated CRCL calculation 86 ml/min; Estimated Glomerular Filt Rate > 60; Glucose 123 mg/dL (70-99); Osmolality Calculated 294 mOsm/kg (285-295); Potassium 3.3 mmol/L (3.5-5.1); Sodium 141 mmol/L (136-145); Total Protein 7.8 g/dL (6.4-8.2); Troponin I 4.1 ng/L (0.00-60.4)
[2022-10-13 23:26] LABS: Amylase 50 U/L (25-115); Lipase 14 U/L (16-77)
[2022-10-13 23:30] VITALS: BP 112/66; PULSE 51; O2SAT 94
[2022-10-13 23:31] VITALS: BP 111/69; PULSE 50; O2SAT 96
[2022-10-13 23:35] LABS: Appearance Urine Clear (Clear); Bilirubin Urine Negative (Negative); Blood Urine Negative (Negative); Color Urine Yellow (Yellow); Glucose Urine UA Negative (Negative); Ketones Urine Negative (Negative); Leukocyte Esterase Ur Negative LEU/UL (Negative); Nitrate Urine Negative (Negative); Protein Urine Negative (Negative)
[2022-10-13 23:42] LABS: Amphetamine Screen Urine Negative (Negative); Barbiturate Screen Urine Negative (Negative); Benzodiazepines Screen Urine Negative (Negative); Cannabinoid Screen Urine Negative (Negative); Cocaine Screen Urine Negative (Negative); Methadone Screen Urine Negative (Negative); Opiate Screen Urine Negative (Negative); Phencyclidine Screen Urine Negative (Negative)
[2022-10-13 23:45] LABS: Add Urine Microscopic? NO
[2022-10-14 00:01] VITALS: BP 108/63; PULSE 57; RESP 16; O2SAT 95
[2022-10-14] MEDS: KETOROLAC 30 MG/ML VIAL (*BKC) IV PUSH (00:50)
[2022-10-14 01:00] VITALS: BP 106/68; PULSE 48; RESP 18; O2SAT 95
[2022-10-14 01:01] VITALS: BP 106/68; PULSE 54; O2SAT 95
[2022-10-14 01:42] LABS: Troponin I 5.4 ng/L (0.00-60.4)
[2022-10-14 02:13] VITALS: BP 114/68; PULSE 51; RESP 18; O2SAT 96
== END 2022-10-14 02:14 | disposition home or self-care (01) ==
PROVIDERS: Emergency Provider Emergency Medicine; PCP Family Medicine
DX: R07.9 Chest pain, unspecified (principal); F17.200 Nicotine dependence, unspecified, uncomplicated; Z79.891 Long term (current) use of opiate analgesic
CPT/HCPCS: 36415; 36600; 71045; 80053; 80307; 81003; 82150; 82805; 83690; 84484; 85025; 85380; 93005; 96374; 99284; A9270; J1885

== ENCOUNTER 2022-10-16 20:16 | Emergency (ER) | payer OTHER, SELFPAY ==
[2022-10-16 20:17] VITALS: BP 135/83; PULSE 67; RESP 14; TEMP 36.4; O2SAT 100
--- NOTE | 2022-10-16 20:22 | ED.DENTAL ---
HPI - Dental/Oral General Chief complaint: Dental/Oral Stated complaint: dental pain Time Seen by Provider: 10/16/22 20:22 Source: patient Mode of arrival: ambulatory Limitations: no limitations History of Present Illness HPI Narrative: 37-year-old male with extensive dental caries presents to the ER with -- left lower jaw pain /dental pain with jaw swelling. the patient has extensive dental caries with multiple crowns missing. The patient was seen on 10/09/2022 For dental pain involving 9,10,11,12,13,14,15,16 today the patient presents with dental pain involving 17, 18, 19, 20, 21. most of the crowns are missing. The roots of the teeth are infected with surrounding gum swelling. patient received clindamycin on 10/09/2022 but the patient states that the antibiotic did nothing for him. Patient was here 3 days ago for chest pain. MD Complaint: tooth pain Location: Tooth # ( Seventeen, 18, 19, 20 and 21) Teeth map: 1. swelling of the jaw 2. 3. missing crowns with infected roots along with gum swelling Onset (ago): day(s) Duration: constant Severity: severe Relieving factors: nothing Exacerbating factors: cold and heat Context: history of dental caries Related Data Home Medications Medication Instructions Recorded Confirmed tramadol 50 mg PO Q4-6H PRN Pain 10/13/22 10/16/22 Allergies Allergy/AdvReac Type Severity Reaction Status Date / Time No Known Allergies Allergy Verified 10/16/22 20:21 Review of Systems Review of Systems: All systems reviewed & are unremarkable except as noted in HPI and below PMFSH Past Medical History Medical History Acute viral pharyngitis Back ache Ganglion Ganglion and cyst of synovium, tendon and bursa Social History Social History Smoking status: Current every day smoker Alcohol intake: current Substance use: never Living arrangements: with family Gender identity (if verbalized by the patient): Male Exam Const: General: no acute distress Nutritional Appearance: thin Orientation/consciousness: patient oriented x3 Limitations: no limitations HENMT: Head: normal to inspection Ears: external ears normal Face/Nose/Sinus: Normal external nose present Face and sinus: normal facial exam Mouth: Yes Normal oral and palatal mucosa present Teeth and gingiva: dentition normal ( extensive dental caries. Pain in tooth 17 through 21) Throat: posterior oropharynx normal Other: swelling of the left lower jaw. Eyes: Conjunctivae: conjunctivae normal EOM: EOMs intact bilaterally Direct Ophthalmoscopy: no photophobia Neck: Neck: normal visual inspection, no lymphadenopathy and no meningeal signs Chest: Chest palpation & inspection: normal inspection of the chest Resp: Effort & Inspection: normal respiratory effort Auscultation: clear to auscultation bilaterally Cardio: Rate: regular rate Rhythm: regular rhythm GI: Other: No tenderness/ rigidity /rebound. Back/Spine/Pelvis: Back: no CVA tenderness Skin: General skin exam: normal color Rashes: no rashes Wounds: no wounds Neuro: General: patient oriented x3, moves all extremities, no meningeal signs, no focal motor deficits and CN's II-XI intact bilaterally Cranial nerves: Yes Nystagmus not present Speech: normal speech Extrem: General: normal to inspection, no clubbing, cyanosis or edema and no pedal edema Psych: Mental Status: mental status grossly normal Affect: normal affect Attitude: cooperative Course Course Emergency Course: Left lower jaw/dental pain secondary to extensive dental caries/ gingivitis /dental abscess? . The patient had been on clindamycin which the patient stated did not work. Will give him oral Augmentin 875. Advised the patient to follow-up with a dentist. Advised him that no amount of medical treatment is going to help unless he gets the infec
[2022-10-16] MEDS: HYDROcodone/acetaminophen (*CRX) 5-325 MG TABLET 1 TAB PO (20:37)
[2022-10-16] MEDS: AMOXICILLIN/CLAVULANATE K 875-125 MG TAB 1 TABLET PO (20:37)
--- NOTE | 2022-10-17 04:18 | ED_ITS ---
HPI - Chest Pain General Chief Complaint: Dental/Oral Stated Complaint: dental pain Time Seen by Provider: 10/16/22 20:22 Source: patient Mode of arrival: ambulatory Limitations: no limitations Related Data Home Medications Medication Instructions Recorded Confirmed tramadol 50 mg PO Q4-6H PRN Pain 10/13/22 10/16/22 Allergies Allergy/AdvReac Type Severity Reaction Status Date / Time No Known Allergies Allergy Verified 10/16/22 20:21 [facility] Past Medical History Medical History Acute viral pharyngitis Back ache Ganglion Ganglion and cyst of synovium, tendon and bursa Social History Social History Smoking status: Current every day smoker Alcohol intake: current Substance use: never Living arrangements: with family Gender identity (if verbalized by the patient): Male Course Vital Signs Vital signs: Vital Signs Temperature 36.4 C L 10/16/22 20:17 Pulse Rate 67 10/16/22 20:17 Respiratory Rate 14 10/16/22 20:17 Blood Pressure 135/83 10/16/22 20:17 Pulse Oximetry 100 10/16/22 20:17 Oxygen Delivery Room Air 10/16/22 20:17 Temperature 36.4 C L 10/16/22 20:17 Pulse Rate 67 10/16/22 20:17 Respiratory Rate 14 10/16/22 20:17 Blood Pressure 135/83 10/16/22 20:17 Pulse Oximetry 100 10/16/22 20:17 Oxygen Delivery Room Air 10/16/22 20:17 Discharge Plan Discharge Clinical Impression: Dental caries, Toothache Patient Disposition: Home, Self-Care Condition: Stable Instructions: Antibiotic Form, Dental Abscess (ED), Toothache (ED) Patient Language: Portuguese Prescriptions: New amoxicillin-pot clavulanate 875-125 mg tablet 1 tablet PO Q12H Qty: 14 0RF No Action tramadol 50 mg PO Q4-6H PRN (Reason: Pain) Follow-up/Referrals: Lane Rosas MD [Primary Care Provider] - Stand Alone Forms: Work/School Release IP Time of Disposition: 20:42
--- NOTE | 2022-10-17 04:30 | ED_ITS ---
HPI - SOB/Dyspnea General Chief Complaint: Dental/Oral Stated Complaint: dental pain Time Seen by Provider: 10/16/22 20:22 Source: patient Mode of arrival: ambulatory Limitations: no limitations Related Data Home Medications Medication Instructions Recorded Confirmed tramadol 50 mg PO Q4-6H PRN Pain 10/13/22 10/16/22 Allergies Allergy/AdvReac Type Severity Reaction Status Date / Time No Known Allergies Allergy Verified 10/16/22 20:21 [facility] Past Medical History Medical History Acute viral pharyngitis Back ache Ganglion Ganglion and cyst of synovium, tendon and bursa Social History Social History Smoking status: Current every day smoker Alcohol intake: current Substance use: never Living arrangements: with family Gender identity (if verbalized by the patient): Male Course Vital Signs Vital signs: Vital Signs Temperature 36.4 C L 10/16/22 20:17 Pulse Rate 67 10/16/22 20:17 Respiratory Rate 14 10/16/22 20:17 Blood Pressure 135/83 10/16/22 20:17 Pulse Oximetry 100 10/16/22 20:17 Oxygen Delivery Room Air 10/16/22 20:17 Temperature 36.4 C L 10/16/22 20:17 Pulse Rate 67 10/16/22 20:17 Respiratory Rate 14 10/16/22 20:17 Blood Pressure 135/83 10/16/22 20:17 Pulse Oximetry 100 10/16/22 20:17 Oxygen Delivery Room Air 10/16/22 20:17 Discharge Plan Discharge Clinical Impression: Dental caries, Toothache Patient Disposition: Home, Self-Care Condition: Stable Instructions: Antibiotic Form, Dental Abscess (ED), Toothache (ED) Patient Language: [place]uran Prescriptions: New amoxicillin-pot clavulanate 875-125 mg tablet 1 tablet PO Q12H Qty: 14 0RF No Action tramadol 50 mg PO Q4-6H PRN (Reason: Pain) Follow-up/Referrals: Lane Rosas MD [Primary Care Provider] - Stand Alone Forms: Work/School Release IP Time of Disposition: 20:42
== END 2022-10-16 20:55 | disposition home or self-care (01) ==
PROVIDERS: Emergency Provider Internal Medicine Critical Care Medicine; PCP Family Medicine
DX: K02.9 Dental caries, unspecified (principal); F17.210 Nicotine dependence, cigarettes, uncomplicated
CPT/HCPCS: 99283; A9270

== ENCOUNTER 2022-10-17 04:03 | Emergency (ER) | payer OTHER, SELFPAY ==
[2022-10-17] VITALS (13 sets, daily range): BP systolic 116–126; BP diastolic 81–84; PULSE 54–65; RESP 7–22; TEMP 37; O2SAT 96–100
--- NOTE | ~2022-10-17 | XR_ITS ---
EXAMINATION: XR chest 1V portable DATE: 10/17/2022 05:57 INDICATION: Chest pain and shortness of breath TECHNIQUE: frontal view of the chest was obtained. COMPARISON: Chest radiograph dated 10/13/2022 FINDINGS: The lungs remain clear with no focal airspace opacities, pulmonary edema, pleural effusion or pneumot horax. The cardiomediastinal silhouette is normal. Visualized bones and soft tissues are unremarkable . IMPRESSION: 1. No acute cardiopulmonary disease. Reviewed, dictated and finalized at location A.
--- NOTE | 2022-10-17 04:05 | ECG_ITS ---
Measurements Intervals [place] Rate: 60 P: 38 NE: 135 QRS: 73 QRSD: 89 T: 62 QT: 387 QTc: 389 Interpretive Statements SINUS RHYTHM NORMAL ECG COMPARED TO ECG 10/13/2022 22:32:33 NO SIGNIFICANT CHANGES Electronically Signed On 10-18-2022 7:38:29 CDT by Devonte Allison M.D.
[2022-10-17 04:56] LABS: Basophils Absolute Auto 0.02 K/mm3 (0.00-0.10); Basophils Percent Auto 0.2 % (0.0-1.0); Eosinophils Absolute Auto 0.19 K/mm3 (0.02-0.50); Eosinophils Percent Auto 1.9 % (1.0-6.0); Hematocrit 40.5 % (40.0-54.0); Hemoglobin 13.6 g/dL (14.0-18.0); Immature Granulocyte Absolute 0.02 K/mm3 (0.00-0.00); Immature Granulocyte Percent A 0.2 % (0.0-0.0); Lymphocytes Percent Auto 18.7 % (18.0-42.0); Mean Corpuscular HGB Conc 33.6 g/dL (32.0-36.0); Mean Corpuscular Hemoglobin 30.9 pg (27.0-31.0); Mean Platelet Volume 10.1 fl (8.7-11.0); Monocytes Absolute Auto 0.99 K/mm3 (0.10-0.90); Monocytes Percent Auto 9.7 % (2.0-11.0); Neutrophils Absolute Auto 7.1 K/mm3 (1.7-7.2); Neutrophils Percent Auto 69.3 % (50.0-70.0); Platelet Count Result 198 K/mm3 (150-420); White Blood Count 10.2 K/mm3 (4.8-10.8)
[2022-10-17 05:19] LABS: Alanine Aminotransferase 20 U/L (16-63); Albumin Level 3.7 g/dL (3.4-5.0); Alkaline Phosphatase 74 U/L (46-116); Anion Gap 8 mmol/L (8-16); Aspartate Amino Transferase 12 U/L (15-37); Bilirubin,Total 0.4 mg/dL (0.00-1.00); Blood Urea Nitrogen 8 mg/dL (7-18); Calcium 8.5 mg/dL (8.5-10.1); Carbon Dioxide 28 mmol/L (21-32); Chloride 104 mmol/L (98-108); Estimated CRCL calculation 95 ml/min; Estimated Glomerular Filt Rate > 60; Glucose 99 mg/dL (70-99); Osmolality Calculated 288 mOsm/kg (285-295); Potassium 3.8 mmol/L (3.5-5.1); Sodium 140 mmol/L (136-145); Total Protein 6.7 g/dL (6.4-8.2); Troponin I 5.9 ng/L (0.00-60.4)
[2022-10-17 05:24] LABS: NT Pro B Type Natriuretic Pept 49 pg/mL (0-125)
== END 2022-10-17 06:10 | disposition home or self-care (01) ==
PROVIDERS: Emergency Provider Internal Medicine Critical Care Medicine; PCP Family Medicine
DX: K02.9 Dental caries, unspecified (principal); R07.9 Chest pain, unspecified; R06.02 Shortness of breath
CPT/HCPCS: 36415; 71045; 80053; 83880; 84484; 85025; 93005; 96365; 99284; J2543

== ENCOUNTER 2022-10-28 14:38 | Outpatient (CLI) | payer OTHER, SELFPAY ==
--- NOTE | ~2022-10-28 | XR_ITS ---
XR lumbar spine 2-3V DATE: 10/28/2022 14:57 INDICATION: Low back pain. Moving injury today. TECHNIQUE: AP, lateral, coned lateral lumbosacral views COMPARISON: 02/27/2022 lumbar spine FINDINGS: Mild degenerative spurring of the lower thoracic spine. No fracture or bone destruction or spondylolisthesis of the lumbar spine. The lumbar pedicles are int act. Lumbar and lumbosacral interspaces appear well preserved. The sacroiliac joints are intact. IMPRESSION: Mild degenerative spurring the lower thoracic spine No significant abnormality of the lumbar spine Reviewed, dictated and finalized at location B.
== END 2022-10-28 14:39 | disposition home or self-care (01) ==
LOC: CHSIMG 14:40
PROVIDERS: PCP Family Medicine; Visit Provider Family Medicine
DX: M54.50 Low back pain, unspecified (principal); M46.04 Spinal enthesopathy, thoracic region
CPT/HCPCS: 72100